=== PATIENT | female | born 1940 | race Caucasian/White ===

== ENCOUNTER 2018-10-11 21:50 | Inpatient (IN) | payer MEDICARE, MEDICAID ==
[~2018-10-11] VITALS: Ht 172.7 cm; Wt 70.6 kg
[2018-10-11] MEDS ORDERED: aspirin 81mg tab.chew PO ONE (22:10)
[2018-10-11] MEDS ORDERED: LORazepam 1 MG tablet PO ONE (22:10)
[2018-10-11] MEDS ORDERED: nitroGLYCERIN 1gm ointment UD TP ONE (22:10)
[2018-10-11 22:23] LABS: BASOPHILS # (AUTO) 0.1 X10'3 (0-0.2); BASOPHILS % (AUTO) 0.6 % (0-1); EOSINOPHILS # (AUTO) 0.4 X10'3 (0-0.9); EOSINOPHILS % (AUTO) 4.5 % (0-6); HEMATOCRIT 41.1 % (35.0-45.0); HEMOGLOBIN 13.4 g/dl (12.0-16.0); LYMPHOCYTES # (AUTO) 2.8 X10'3 (1.1-4.8); LYMPHOCYTES % (AUTO) 30.7 % (21-51); MEAN CORPUSCULAR HEMOGLOBIN 25.5 PG (27.0-31.0); MEAN CORPUSCULAR HGB CONC 32.7 % (33.0-36.5); MEAN CORPUSCULAR VOLUME 78.1 FL (78-98); MEAN PLATELET VOLUME 9.7 FL (7.4-10.4); MONOCYTES # (AUTO) 0.5 X10'3 (0-0.9); MONOCYTES % (AUTO) 5.5 % (2-12); NEUTROPHILS # (AUTO) 5.3 X10'3 (1.8-7.7); NEUTROPHILS % (AUTO) 58.7 % (42-75); PLATELET COUNT 223 X10'3 (140-440); RED BLOOD COUNT 5.26 X10'6 (4.20-5.60)
[2018-10-11 22:43] LABS: ALANINE AMINOTRANSFERASE 15 U/L (12-78); ALBUMIN 3.2 G/DL (3.4-5.0); ALKALINE PHOSPHATASE 89 IU/L (46-116); ANION GAP 7 (8-16); ASPARTATE AMINO TRANSFERASE 11 U/L (10-37); BILIRUBIN,TOTAL 0.2 MG/DL (0.1-1.0); BLOOD UREA NITROGEN 23 MG/DL (7-18); BUN/CREATININE RATIO 21.5 (6.6-38.0); CALCIUM 8.9 MG/DL (8.5-10.1); CHLORIDE 105 MMOL/L (99-107); CREATININE 1.07 MG/DL (0.40-0.90); GLUCOSE 134 MG/DL (70-104); POTASSIUM 4.2 MMOL/L (3.5-5.1); SODIUM 140 MMOL/L (135-145); TOTAL CARBON DIOXIDE 27.9 MMOL/L (24-32); TOTAL PROTEIN 6.5 G/DL (6.4-8.2); eGFR 50 ML/MIN
[2018-10-11 22:59] LABS: D-DIMER 1.04 MG/L FEU (0-0.50); INR 0.9 INR; PARTIAL THROMBOPLASTIN TIME 26 SECONDS (22-32); PROTHROMBIN TIME 9.2 SECONDS (9.0-12.0)
[2018-10-11] MEDS ORDERED: normal saline 1000ml 1,000 ML IV ONE (23:10)
[2018-10-11] MEDS ORDERED: iohexol 350MG/ML 100ml bottle IV ONE (23:12)
[2018-10-12] MEDS ORDERED: NO HOME MEDS (00:24)
[2018-10-12] MEDS ORDERED: heparin 25,000 UNIT/250ml bag 250 ML IV SCH (00:53)
[2018-10-12] MEDS ORDERED: dextrose 5%-1/2 normal saline 1,000 ML IV SCH (00:53)
[2018-10-12] MEDS ORDERED: morphine 2 MG/ML inj. syringe IV PRN (00:55)
[2018-10-12] MEDS ORDERED: ondansetron/PF 4mg/2ml inj IV PRN (00:55)
[2018-10-12] MEDS ORDERED: diphenhydrAMINE 50 mg/ml inj IV PRN (00:55)
[2018-10-12] MEDS ORDERED: HYDROmorphone 1 mg/ml syringe IV PRN (00:55)
[2018-10-12] MEDS ORDERED: metoclopramide 5 mg/ml inj IV PRN (00:55)
[2018-10-12] MEDS ORDERED: bisacodyl 10mg suppository rectal RC PRN (00:55)
[2018-10-12] MEDS ORDERED: nitroGLYCERIN 0.4mg SUBLingual tab SL PRN (00:55)
[2018-10-12] MEDS ORDERED: heparin 10,000 units/1 ML INJ IV ONE (00:55)
[2018-10-12] MEDS ORDERED: heparin 10,000 units/1 ML INJ IV PRN (00:55)
[2018-10-12] MEDS ORDERED: mag hydrox/Alum hydrox/simeth 30ml oral suspension PO PRN (00:55)
[2018-10-12] MEDS ORDERED: acetaminophen 325mg tablet PO PRN ×2 (00:55)
[2018-10-12] MEDS ORDERED: magnesium hydroxide 30ml (MOM) UD suspension PO PRN (00:55)
[2018-10-12] MEDS ORDERED: diphenhydrAMINE 25mg capsule PO PRN (00:55)
[2018-10-12] MEDS ORDERED: HYDROcodone/acetaminophen 10/325mg tab PO PRN (00:55)
[2018-10-12] MEDS ORDERED: acetaminophen 650mg rectal suppository RC PRN (00:55)
[2018-10-12 01:28] LABS: HEMOGLOBIN A1C 6.1 % (4.5-6.2)
[2018-10-12 01:39] LABS: MAGNESIUM 1.9 MG/DL (1.5-2.4); PHOSPHORUS 3.5 MG/DL (2.3-4.5)
[2018-10-12 02:00] VITALS: BP 159/99
[2018-10-12 05:11] LABS: BASOPHILS % (AUTO) 0.5 % (0-1); EOSINOPHILS # (AUTO) 0.4 X10'3 (0-0.9); EOSINOPHILS % (AUTO) 5.4 % (0-6); HEMATOCRIT 35.6 % (35.0-45.0); HEMOGLOBIN 11.4 g/dl (12.0-16.0); LYMPHOCYTES # (AUTO) 2.9 X10'3 (1.1-4.8); LYMPHOCYTES % (AUTO) 39.4 % (21-51); MEAN CORPUSCULAR HEMOGLOBIN 25.4 PG (27.0-31.0); MEAN CORPUSCULAR HGB CONC 32.1 % (33.0-36.5); MEAN CORPUSCULAR VOLUME 78.9 FL (78-98); MEAN PLATELET VOLUME 10.1 FL (7.4-10.4); MONOCYTES # (AUTO) 0.4 X10'3 (0-0.9); MONOCYTES % (AUTO) 5.2 % (2-12); NEUTROPHILS # (AUTO) 3.7 X10'3 (1.8-7.7); NEUTROPHILS % (AUTO) 49.5 % (42-75); PLATELET COUNT 183 X10'3 (140-440); RED BLOOD COUNT 4.51 X10'6 (4.20-5.60); RED CELL DISTRIBUTION WIDTH 15.4 % (11.5-14.5); WHITE BLOOD COUNT 7.5 X10'3 (4.5-11.0)
[2018-10-12 07:02] VITALS: BP 156/82
[2018-10-12] MEDS ORDERED: lisinopril 5mg tablet PO SCH (08:00)
[2018-10-12] MEDS: metoprolol tartrate 12.5mg (1/2 tablet) PO SCH ×2 (08:23→20:54)
[2018-10-12] MEDS: aspirin 81mg tab.chew PO SCH (08:24)
[2018-10-12] MEDS: docusate sod 100mg capsule PO SCH ×2 (08:24→20:00)
[2018-10-12] MEDS: nicotine 21mg patch - 24 hr TD SCH (08:25)
[2018-10-12] MEDS: nitroGLYCERIN 0.2mg/hour patch TD SCH (08:26)
[2018-10-12] MEDS ORDERED: 0.9 % SODIUM CHLORIDE 10 ML VIAL ONE ×3 (09:00)
[2018-10-12] MEDS ORDERED: rocuronium 10mg/ml inj IV ONE (09:00)
[2018-10-12] MEDS ORDERED: etomidate 2mg/ml inj. ONE (09:00)
[2018-10-12] MEDS ORDERED: sodium bicarbonate (8.4%) 1 mEq/ml syringe ONE ×3 (09:00)
[2018-10-12] MEDS ORDERED: calcium chloride 100 MG/1 ML inj IV ONE ×2 (09:00)
[2018-10-12] MEDS ORDERED: dextrose 50%-water 50ml dispensing syringe IV ONE (09:00)
[2018-10-12] MEDS ORDERED: epiNEPHrine 0.1mg/ml 10ml syringe ONE (09:00)
[2018-10-12] MEDS ORDERED: pneumococcal 23-VAL P-sac vacc 25 mcg/0.5ml vial IMVAC ONE (10:00)
[2018-10-12 11:00] VITALS: BP 127/78
[2018-10-12] MEDS: furosemide 20 MG/2 ML vial IV SCH ×2 (11:06→21:18)
[2018-10-12 15:00] VITALS: BP 143/93
[2018-10-12 19:00] VITALS: BP 130/67
[2018-10-12] MEDS: famotidine 20mg tablet PO SCH (20:53)
[2018-10-12] MEDS ORDERED: temazepam 15mg capsule PO PRN (21:00)
[2018-10-12 23:00] VITALS: BP 128/71
[2018-10-13 03:00] VITALS: BP 126/75
[2018-10-13 05:24] LABS: BASOPHILS % (AUTO) 0.6 % (0-1); EOSINOPHILS # (AUTO) 0.4 X10'3 (0-0.9); EOSINOPHILS % (AUTO) 4.4 % (0-6); HEMATOCRIT 39.5 % (35.0-45.0); HEMOGLOBIN 13.1 g/dl (12.0-16.0); LYMPHOCYTES # (AUTO) 2.1 X10'3 (1.1-4.8); LYMPHOCYTES % (AUTO) 26 % (21-51); MEAN CORPUSCULAR HEMOGLOBIN 26.2 PG (27.0-31.0); MEAN CORPUSCULAR HGB CONC 33.2 % (33.0-36.5); MEAN CORPUSCULAR VOLUME 78.8 FL (78-98); MONOCYTES # (AUTO) 0.5 X10'3 (0-0.9); MONOCYTES % (AUTO) 6.6 % (2-12); NEUTROPHILS # (AUTO) 5.1 X10'3 (1.8-7.7); NEUTROPHILS % (AUTO) 62.4 % (42-75); PLATELET COUNT 207 X10'3 (140-440); RED BLOOD COUNT 5.01 X10'6 (4.20-5.60); RED CELL DISTRIBUTION WIDTH 14.4 % (11.5-14.5); WHITE BLOOD COUNT 8.1 X10'3 (4.5-11.0)
[2018-10-13 05:40] LABS: ALANINE AMINOTRANSFERASE 13 U/L (12-78); ALBUMIN 3.2 G/DL (3.4-5.0); ALKALINE PHOSPHATASE 88 IU/L (46-116); ANION GAP 11 (8-16); ASPARTATE AMINO TRANSFERASE 14 U/L (10-37); BILIRUBIN,TOTAL 0.5 MG/DL (0.1-1.0); BLOOD UREA NITROGEN 19 MG/DL (7-18); BUN/CREATININE RATIO 17.8 (6.6-38.0); CALCIUM 8.9 MG/DL (8.5-10.1); CHLORIDE 105 MMOL/L (99-107); CHOL/HDL RATIO 4.1 (0.00-4.99); CHOLESTEROL 205 MG/DL (0-200); CREATININE 1.07 MG/DL (0.40-0.90); GLUCOSE 92 MG/DL (70-104); HDL CHOLESTEROL 50 MG/DL (35-60); LDL CHOLESTEROL 133 MG/DL (50-100); POTASSIUM 3.8 MMOL/L (3.5-5.1); SODIUM 142 MMOL/L (135-145); TOTAL CARBON DIOXIDE 26.2 MMOL/L (24-32); TOTAL PROTEIN 6.5 G/DL (6.4-8.2); TRIGLYCERIDES 131 MG/DL (20-135); eGFR 50 ML/MIN
[2018-10-13 07:13] VITALS: BP 117/69
[2018-10-13] MEDS: docusate sod 100mg capsule PO SCH ×2 (08:00→20:00)
[2018-10-13] MEDS ORDERED: atorvastatin 10mg tablet PO SCH (08:00)
[2018-10-13] MEDS: aspirin 81mg tab.chew PO SCH (08:16)
[2018-10-13] MEDS: nitroGLYCERIN 0.2mg/hour patch TD SCH (08:16)
[2018-10-13] MEDS: furosemide 20 MG/2 ML vial IV SCH ×2 (08:16→21:04)
[2018-10-13 09:00] LABS: TROPONIN I 0.18 NG/ML (0.0-0.05)
[2018-10-13] MEDS: carvedilol 6.25mg tablet PO SCH ×2 (10:09→21:04)
[2018-10-13] MEDS: atorvastatin 20mg tablet PO SCH (10:09)
[2018-10-13] MEDS: nicotine 21mg patch - 24 hr TD SCH (10:10)
[2018-10-13 11:00] VITALS: BP 106/57
[2018-10-13 15:00] VITALS: BP 107/58
[2018-10-13] MEDS ORDERED: heparin 10,000 units/1 ML INJ IV ONE ×2 (17:15→17:20)
[2018-10-13] MEDS ORDERED: heparin 10,000 units/1 ML INJ IV PRN (17:20)
[2018-10-13] MEDS ORDERED: nitroGLYCERIN 0.4mg SUBLingual tab SL PRN (17:20)
[2018-10-13] MEDS: heparin 25,000 UNIT/250ml bag 250 ML IV SCH (17:43)
[2018-10-13 18:57] LABS: BASOPHILS # (AUTO) 0.1 X10'3 (0-0.2); BASOPHILS % (AUTO) 0.6 % (0-1); EOSINOPHILS # (AUTO) 0.1 X10'3 (0-0.9); EOSINOPHILS % (AUTO) 1.3 % (0-6); HEMATOCRIT 39.6 % (35.0-45.0); HEMOGLOBIN 12.9 g/dl (12.0-16.0); LYMPHOCYTES % (AUTO) 11.5 % (21-51); MEAN CORPUSCULAR HEMOGLOBIN 25.8 PG (27.0-31.0); MEAN CORPUSCULAR HGB CONC 32.7 % (33.0-36.5); MEAN CORPUSCULAR VOLUME 78.9 FL (78-98); MEAN PLATELET VOLUME 10.1 FL (7.4-10.4); MONOCYTES # (AUTO) 0.4 X10'3 (0-0.9); MONOCYTES % (AUTO) 4.5 % (2-12); NEUTROPHILS # (AUTO) 7.1 X10'3 (1.8-7.7); NEUTROPHILS % (AUTO) 82.1 % (42-75); PLATELET COUNT 195 X10'3 (140-440); RED BLOOD COUNT 5.02 X10'6 (4.20-5.60); RED CELL DISTRIBUTION WIDTH 15.2 % (11.5-14.5); WHITE BLOOD COUNT 8.7 X10'3 (4.5-11.0)
[2018-10-13 19:00] VITALS: BP 112/55
[2018-10-13 19:17] LABS: PROTHROMBIN TIME 10.2 SECONDS (9.0-12.0)
[2018-10-13] MEDS ORDERED: heparin, porcine 5000 units/ml vial SQ SCH (20:00)
[2018-10-13] MEDS: famotidine 20mg tablet PO SCH (21:04)
[2018-10-13] MEDS: lisinopril 5mg tablet PO SCH (21:04)
[2018-10-13 23:00] VITALS: BP 129/76
[2018-10-14] VITALS (12 sets, daily range): BP systolic 108–141; BP diastolic 51–78
[2018-10-14 03:45] LABS: HEMATOCRIT 38.9 % (35.0-45.0); HEMOGLOBIN 12.7 g/dl (12.0-16.0); MEAN CORPUSCULAR HEMOGLOBIN 25.7 PG (27.0-31.0); MEAN CORPUSCULAR HGB CONC 32.7 % (33.0-36.5); MEAN CORPUSCULAR VOLUME 78.7 FL (78-98); MEAN PLATELET VOLUME 10.2 FL (7.4-10.4); PLATELET COUNT 204 X10'3 (140-440); RED BLOOD COUNT 4.94 X10'6 (4.20-5.60); WHITE BLOOD COUNT 8.1 X10'3 (4.5-11.0)
[2018-10-14 03:49] LABS: ALANINE AMINOTRANSFERASE 14 U/L (12-78); ALBUMIN 3.1 G/DL (3.4-5.0); ALBUMIN/GLOBULIN RATIO 0.9 (1.1-1.5); ALKALINE PHOSPHATASE 80 IU/L (46-116); ANION GAP 11 (8-16); ASPARTATE AMINO TRANSFERASE 15 U/L (10-37); BILIRUBIN,TOTAL 0.6 MG/DL (0.1-1.0); BLOOD UREA NITROGEN 25 MG/DL (7-18); BUN/CREATININE RATIO 23.1 (6.6-38.0); CALCIUM 8.9 MG/DL (8.5-10.1); CHLORIDE 101 MMOL/L (99-107); CREATININE 1.08 MG/DL (0.40-0.90); GLUCOSE 102 MG/DL (70-104); POTASSIUM 3.6 MMOL/L (3.5-5.1); SODIUM 137 MMOL/L (135-145); TOTAL CARBON DIOXIDE 25.5 MMOL/L (24-32); TOTAL PROTEIN 6.5 G/DL (6.4-8.2); eGFR 49 ML/MIN
[2018-10-14 04:49] LABS: PLATELET ESTIMATE NORMAL; TOTAL CELLS COUNTED 100
[2018-10-14] MEDS ORDERED: nitroGLYCERIN-Tridil 50MG/D5W 250 ML IV ONE (06:10)
[2018-10-14] MEDS ORDERED: midazolam 2 mg/2 ml injection ONE (06:10)
[2018-10-14] MEDS ORDERED: fentaNYL/PF 50MCG/1 ML 2ML syringe ONE (06:10)
[2018-10-14] MEDS ORDERED: iohexol 350MG/ML 100ml bottle IV ONE (06:11)
[2018-10-14] MEDS ORDERED: iohexol 350 MG/ML 50ML vial IV ONE (06:11)
[2018-10-14] MEDS ORDERED: LIDOcaine 1% (10mg/ml)w/preservative injection 20ml MDV ONE (06:11)
[2018-10-14] MEDS ORDERED: heparin 1,000unit/ml 10ml vial 10 ML ONE (06:11)
[2018-10-14] MEDS: pantoprazole 40mg Tablet.DR PO SCH (07:30)
[2018-10-14 07:45] LABS: ISTAT HGB ART 12.9 g/dl (12.0-16.0); ISTAT Hct ART 38 %PCV (35-48); ISTAT O2 SATURATION ARTERIAL 93 % (95-98); ISTAT SOURCE ART
[2018-10-14 07:45] LABS: ISTAT Hct MIX 38 %PCV (35-48); ISTAT O2 SATURATION MIX VENOUS 57 % (60-80); ISTAT SOURCE MIX
[2018-10-14] MEDS: atorvastatin 20mg tablet PO SCH (08:00)
[2018-10-14] MEDS: aspirin 81mg tab.chew PO SCH (08:00)
[2018-10-14] MEDS: docusate sod 100mg capsule PO SCH ×2 (08:00→20:00)
[2018-10-14] MEDS: furosemide 20 MG/2 ML vial IV SCH ×2 (10:00→20:29)
[2018-10-14] MEDS: nicotine 21mg patch - 24 hr TD SCH (10:00)
[2018-10-14] MEDS: nitroGLYCERIN 0.2mg/hour patch TD SCH (10:00)
[2018-10-14] MEDS: carvedilol 6.25mg tablet PO SCH ×2 (10:01→20:29)
[2018-10-14] MEDS ORDERED: cefazolin/dext.iso 2gm/50ml 50 ML IV ONE (10:25)
[2018-10-14] MEDS ORDERED: dextrose 50%-water 50ml dispensing syringe IV PRN (10:25)
[2018-10-14] MEDS: insulin regular, human inj. 100 UNITS in normal saline 100ml IV soln 100 ML IV SCH ×2 (10:25)
[2018-10-14] MEDS ORDERED: MESSAGE TO NURSING PO ONE ×4 (10:25)
[2018-10-14] MEDS ORDERED: vancomycin/NS 1 GM ADD-VANTAGE 250 ML IV ONE (10:25)
[2018-10-14 10:47] LABS: ALBUMIN 2.9 G/DL (3.4-5.0); ANION GAP 10 (8-16); BLOOD UREA NITROGEN 23 MG/DL (7-18); BUN/CREATININE RATIO 22.3 (6.6-38.0); CALCIUM 8.6 MG/DL (8.5-10.1); CHLORIDE 102 MMOL/L (99-107); CREATININE 1.03 MG/DL (0.40-0.90); GLUCOSE 104 MG/DL (70-104); POTASSIUM 3.7 MMOL/L (3.5-5.1); SODIUM 136 MMOL/L (135-145); TOTAL CARBON DIOXIDE 24.3 MMOL/L (24-32); eGFR 52 ML/MIN
[2018-10-14 11:02] LABS: HEMATOCRIT 38.4 % (35.0-45.0); HEMOGLOBIN 12.6 g/dl (12.0-16.0); MEAN CORPUSCULAR HEMOGLOBIN 25.5 PG (27.0-31.0); MEAN CORPUSCULAR HGB CONC 32.6 % (33.0-36.5); MEAN CORPUSCULAR VOLUME 78.2 FL (78-98); MEAN PLATELET VOLUME 10.3 FL (7.4-10.4); PLATELET COUNT 183 X10'3 (140-440); RED BLOOD COUNT 4.92 X10'6 (4.20-5.60); RED CELL DISTRIBUTION WIDTH 14.9 % (11.5-14.5)
[2018-10-14] MEDS: insulin Lispro (HumaLOG) vial - multi-dose SQ SCH ×2 (13:00→18:00)
[2018-10-14] MEDS ORDERED: furosemide 10 MG/1 ML 10ml inj IV ONE (13:40)
[2018-10-14] MEDS ORDERED: potassium Cl 20 mEq SR tablet PO STA (13:40)
[2018-10-14] MEDS ORDERED: furosemide 40mg/4ml inj IV ONE (14:05)
[2018-10-14 15:46] LABS: ABG BASE EXCESS 1.4 mmol/L (-2.0-3.0); ABG HCO3 24.9 mmol/L (22.0-26.0); ABG OXYGEN SATURATION 94.3 % (95-98); ABG PCO2 (T) 35.7 mmHg (32.0-45.0); ABG PH (T) 7.461 (7.350-7.450); ABG PO2 (T) 67.1 mmHg (83-108); ALLEN'S TEST Positive; FCOHb 0.3 % (0.5-1.5); TOTAL HEMOGLOBIN 13.2 G/dl (12.0-16.0)
[2018-10-14 16:07] LABS: CLARITY,URINE CLEAR (Clear); COLOR,URINE STRAW (Yellow); GLUCOSE, URINE NEGATIVE (Neg); KETONES,URINE NEGATIVE (Neg); LEUKOCYTE ESTERASE ,URINE NEGATIVE (Neg); NITRITES, URINE NEGATIVE (Neg); OCCULT BLOOD,URINE SMALL (Neg); PH,URINE 6.5 (4.8-8.0); PROTEIN,URINE NEGATIVE (Neg); UROBILINOGEN,URINE 0.2 E.U/dL (0.2-1.0)
[2018-10-14 16:13] LABS: UA COLLECTION TYPE CLN CATCH MIDSTREAM
[2018-10-14 16:15] LABS: BACTERIA,URINE FEW /HPF (Neg); RBC,URINE 0-2 /HPF (0-2); SQUAMOUS EPITHELIAL CELL,UR FEW /LPF (FEW); WBC,URINE 0-4 /HPF (0-4)
[2018-10-14] MEDS: heparin 25,000 UNIT/250ml bag 250 ML IV SCH (18:15)
[2018-10-14] MEDS ORDERED: metoprolol tartrate 12.5mg (1/2 tablet) PO SCH (20:00)
[2018-10-14] MEDS: mupirocin 2% nasal ointment 1gm UD NS SCH ×2 (20:00→20:39)
[2018-10-14] MEDS: famotidine 20mg tablet PO SCH (20:29)
[2018-10-14] MEDS: lisinopril 5mg tablet PO SCH (20:29)
[2018-10-14] MEDS ORDERED: ringers solution, lacted 1,000 ML IV ONE (20:42)
[2018-10-15] VITALS (15 sets, daily range): BP systolic 100–146; BP diastolic 56–78
[2018-10-15 05:26] LABS: INR 0.9 INR; PROTHROMBIN TIME 9.6 SECONDS (9.0-12.0)
[2018-10-15 05:28] LABS: BASOPHILS % (AUTO) 0.2 % (0-1); EOSINOPHILS # (AUTO) 0.2 X10'3 (0-0.9); EOSINOPHILS % (AUTO) 1.8 % (0-6); HEMATOCRIT 38.1 % (35.0-45.0); HEMOGLOBIN 12.5 g/dl (12.0-16.0); LYMPHOCYTES # (AUTO) 1.7 X10'3 (1.1-4.8); LYMPHOCYTES % (AUTO) 18.8 % (21-51); MEAN CORPUSCULAR HEMOGLOBIN 25.5 PG (27.0-31.0); MEAN CORPUSCULAR HGB CONC 32.8 % (33.0-36.5); MEAN CORPUSCULAR VOLUME 77.8 FL (78-98); MEAN PLATELET VOLUME 10.4 FL (7.4-10.4); MONOCYTES # (AUTO) 0.6 X10'3 (0-0.9); MONOCYTES % (AUTO) 6.1 % (2-12); NEUTROPHILS # (AUTO) 6.6 X10'3 (1.8-7.7); NEUTROPHILS % (AUTO) 73.1 % (42-75); PLATELET COUNT 204 X10'3 (140-440); RED BLOOD COUNT 4.89 X10'6 (4.20-5.60); RED CELL DISTRIBUTION WIDTH 14.9 % (11.5-14.5); WHITE BLOOD COUNT 9.1 X10'3 (4.5-11.0)
[2018-10-15 05:30] LABS: ALANINE AMINOTRANSFERASE 14 U/L (12-78); ALBUMIN 3.2 G/DL (3.4-5.0); ALBUMIN/GLOBULIN RATIO 0.9 (1.1-1.5); ALKALINE PHOSPHATASE 88 IU/L (46-116); ANION GAP 12 (8-16); ASPARTATE AMINO TRANSFERASE 13 U/L (10-37); BILIRUBIN,TOTAL 0.4 MG/DL (0.1-1.0); BLOOD UREA NITROGEN 26 MG/DL (7-18); BUN/CREATININE RATIO 23.4 (6.6-38.0); CALCIUM 9.1 MG/DL (8.5-10.1); CHLORIDE 101 MMOL/L (99-107); CREATININE 1.11 MG/DL (0.40-0.90); GLUCOSE 108 MG/DL (70-104); POTASSIUM 3.9 MMOL/L (3.5-5.1); SODIUM 137 MMOL/L (135-145); TOTAL CARBON DIOXIDE 23.7 MMOL/L (24-32); TOTAL PROTEIN 6.7 G/DL (6.4-8.2); eGFR 48 ML/MIN
[2018-10-15] MEDS ORDERED: famotidine 20mg tablet PO ONE (06:00)
[2018-10-15] MEDS ORDERED: LORazepam 2 mg/ml vial IV ONE (06:00)
[2018-10-15] MEDS ORDERED: LIDOcaine 2% (20 mg/ml) 5ml cardiac syringe ONE (06:55)
[2018-10-15] MEDS ORDERED: aminocaproic acid 250 MG/1 ML inj. ONE (06:55)
[2018-10-15] MEDS ORDERED: DOPamine/D5W 400mg/250ml bag IV ONE (06:55)
[2018-10-15] MEDS ORDERED: heparin 10,000 units/1 ML INJ ONE (06:55)
[2018-10-15] MEDS ORDERED: protamine sulf. 10mg/ml inj. IV ONE (06:55)
[2018-10-15] MEDS ORDERED: magnesium sulf 1 GM/2 ML ONE (06:55)
[2018-10-15] MEDS ORDERED: sodium bicarbonate (8.4%) 1 mEq/ml syringe ONE (06:55)
[2018-10-15] MEDS ORDERED: DOBUTamine/D5W 500mg/250ml premix IV ONE (06:55)
[2018-10-15] MEDS ORDERED: albumin (human) 25% 100 ML IV solution IV ONE (06:55)
[2018-10-15] MEDS ORDERED: methylPREDNISolone sod succ 1000mg vial ONE (06:55)
[2018-10-15] MEDS ORDERED: sevoflurane 250ml liquid IH ONE (06:55)
[2018-10-15] MEDS ORDERED: heparin 1,000 units/ml 10ml inj ONE (06:55)
[2018-10-15] MEDS ORDERED: ePHEDrine 50MG/ML INJ. ONE ×2 (06:55→08:18)
[2018-10-15] MEDS ORDERED: potassium Cl 2 mEq/ml inj IV ONE (06:55)
[2018-10-15] MEDS ORDERED: MIDAZolam 1mg/ml 10ml vial ONE (07:11)
[2018-10-15] MEDS ORDERED: SUfentanil 50mcg/ml 1ml amp IV ONE ×2 (07:11)
[2018-10-15] MEDS: pantoprazole 40mg Tablet.DR PO SCH (07:30)
[2018-10-15] MEDS: docusate sod 100mg capsule PO SCH ×2 (08:00→20:00)
[2018-10-15] MEDS: mupirocin 2% nasal ointment 1gm UD NS SCH ×2 (08:00→20:14)
[2018-10-15] MEDS: carvedilol 6.25mg tablet PO SCH (08:00)
[2018-10-15] MEDS: aspirin 81mg tab.chew PO SCH (08:00)
[2018-10-15] MEDS: nitroGLYCERIN 0.2mg/hour patch TD SCH (08:00)
[2018-10-15] MEDS: furosemide 20 MG/2 ML vial IV SCH (08:00)
[2018-10-15] MEDS: nicotine 21mg patch - 24 hr TD SCH ×3 (08:00→10:05)
[2018-10-15] MEDS: atorvastatin 20mg tablet PO SCH (08:00)
[2018-10-15 08:17] LABS: ABG BASE EXCESS 1.2 mmol/L (-2.0-3.0); ABG HCO3 25.2 mmol/L (22.0-26.0); ABG OXYGEN SATURATION 99.5 % (95-98); ABG PCO2 37.9 mmHg (35.0-45.0); ABG PH 7.441 (7.350-7.450); ABG PO2 415.9 mmHg (60.0-100.0); CL (ABG) 106 mmol/L (99-107); FMetHb 0.3 % (0.3-1.12); FO2Hb 99.2 % (94-100); GLUCOSE (ABG) 92 mg/dl (70-105); IONIZED CA (ABG) 1.15 mmol/L (1.03-1.32); K (ABG) 3.9 mmol/L (3.3-5.1); NA (ABG) 135 mmol/L (135-145); TOTAL HEMOGLOBIN 11.6 G/dl (12.0-16.0)
[2018-10-15] MEDS ORDERED: pancuronium br 1mg/ml inj IV ONE (08:18)
[2018-10-15] MEDS ORDERED: phenylephrine 10mg/ml inj. ONE (08:18)
[2018-10-15] MEDS ORDERED: albumin (Human) 5% 250ml 250 ML IV ONE ×4 (08:29→13:03)
[2018-10-15] MEDS: insulin Lispro (HumaLOG) vial - multi-dose SQ SCH ×3 (09:00→17:29)
[2018-10-15 09:25] LABS: ABG BASE EXCESS VENOUS -1.5 mmol/L; ABG PCO2 VENOUS 43.5 mmHg; ABG PO2 VENOUS 40.4 mmHg; CL (ABG) 104 mmol/L (99-107); FCOHb VENOUS 0.3 %; FHHb VENOUS 28.3 %; FMetHb VENOUS 0.3 %; FO2Hb VENOUS 71.1 %; GLUCOSE (ABG) 89 mg/dl (70-105); IONIZED CA (ABG) 1.11 mmol/L (1.03-1.32); K (ABG) 4.1 mmol/L (3.3-5.1); NA (ABG) 135 mmol/L (135-145); TOTAL HEMOGLOBIN 10.6 G/dl (12.0-16.0)
[2018-10-15 09:50] LABS: ABG BASE EXCESS 1.5 mmol/L (-2.0-3.0); ABG HCO3 24.6 mmol/L (22.0-26.0); ABG OXYGEN SATURATION 99.3 % (95-98); ABG PCO2 32.1 mmHg (35.0-45.0); ABG PH 7.503 (7.350-7.450); ABG PO2 433.6 mmHg (60.0-100.0); CL (ABG) 100 mmol/L (99-107); FCOHb 0.8 % (0.5-1.5); FMetHb 0.6 % (0.3-1.12); FO2Hb 97.9 % (94-100); GLUCOSE (ABG) 98 mg/dl (70-105); IONIZED CA (ABG) 0.89 mmol/L (1.03-1.32); K (ABG) 3.9 mmol/L (3.3-5.1); NA (ABG) 131 mmol/L (135-145)
[2018-10-15] MEDS ORDERED: MESSAGE TO NURSING PO ONE (10:00)
[2018-10-15] MEDS: insulin regular, human inj. 100 UNITS in normal saline 100ml IV soln 100 ML IV SCH ×2 (10:06)
[2018-10-15 10:11] LABS: ABG BASE EXCESS -0.1 mmol/L (-2.0-3.0); ABG HCO3 25.2 mmol/L (22.0-26.0); ABG OXYGEN SATURATION 99.4 % (95-98); ABG PCO2 43.7 mmHg (35.0-45.0); ABG PH 7.378 (7.350-7.450); ABG PO2 592.3 mmHg (60.0-100.0); CL (ABG) 103 mmol/L (99-107); FCOHb 0.5 % (0.5-1.5); FMetHb 0.5 % (0.3-1.12); FO2Hb 98.4 % (94-100); GLUCOSE (ABG) 141 mg/dl (70-105); IONIZED CA (ABG) 0.93 mmol/L (1.03-1.32); NA (ABG) 131 mmol/L (135-145); TOTAL HEMOGLOBIN 8.1 G/dl (12.0-16.0)
[2018-10-15 10:31] LABS: ABG BASE EXCESS VENOUS -1.4 mmol/L; ABG PCO2 VENOUS 42.9 mmHg; ABG PO2 VENOUS 57.8 mmHg; CL (ABG) 102 mmol/L (99-107); FCOHb VENOUS 0.3 %; FHHb VENOUS 10.2 %; FMetHb VENOUS 0.4 %; FO2Hb VENOUS 89.1 %; GLUCOSE (ABG) 144 mg/dl (70-105); IONIZED CA (ABG) 0.99 mmol/L (1.03-1.32); NA (ABG) 131 mmol/L (135-145); TOTAL HEMOGLOBIN 9.3 G/dl (12.0-16.0)
[2018-10-15 10:45] LABS: ABG BASE EXCESS -4.5 mmol/L (-2.0-3.0); ABG HCO3 22.6 mmol/L (22.0-26.0); ABG OXYGEN SATURATION 99.3 % (95-98); ABG PCO2 50.5 mmHg (35.0-45.0); ABG PH 7.268 (7.350-7.450); ABG PO2 377.3 mmHg (60.0-100.0); CL (ABG) 105 mmol/L (99-107); FCOHb 0.3 % (0.5-1.5); FMetHb 0.4 % (0.3-1.12); FO2Hb 98.6 % (94-100); GLUCOSE (ABG) 144 mg/dl (70-105); IONIZED CA (ABG) 0.98 mmol/L (1.03-1.32); K (ABG) 5.6 mmol/L (3.3-5.1); NA (ABG) 134 mmol/L (135-145); TOTAL HEMOGLOBIN 10.5 G/dl (12.0-16.0)
[2018-10-15 10:56] LABS: ABG BASE EXCESS 1.5 mmol/L (-2.0-3.0); ABG HCO3 25.5 mmol/L (22.0-26.0); ABG OXYGEN SATURATION 99.3 % (95-98); ABG PH 7.445 (7.350-7.450); ABG PO2 402.3 mmHg (60.0-100.0); CL (ABG) 105 mmol/L (99-107); FCOHb 0.3 % (0.5-1.5); FMetHb 0.3 % (0.3-1.12); FO2Hb 98.7 % (94-100); GLUCOSE (ABG) 145 mg/dl (70-105); IONIZED CA (ABG) 0.93 mmol/L (1.03-1.32); K (ABG) 5.9 mmol/L (3.3-5.1); NA (ABG) 135 mmol/L (135-145); TOTAL HEMOGLOBIN 9.8 G/dl (12.0-16.0)
[2018-10-15 11:21] LABS: ABG BASE EXCESS -0.3 mmol/L (-2.0-3.0); ABG HCO3 23.6 mmol/L (22.0-26.0); ABG OXYGEN SATURATION 99.3 % (95-98); ABG PCO2 35.7 mmHg (35.0-45.0); ABG PH 7.439 (7.350-7.450); ABG PO2 394.5 mmHg (60.0-100.0); CL (ABG) 109 mmol/L (99-107); FCOHb 0.4 % (0.5-1.5); FMetHb 0.3 % (0.3-1.12); FO2Hb 98.6 % (94-100); GLUCOSE (ABG) 145 mg/dl (70-105); IONIZED CA (ABG) 0.92 mmol/L (1.03-1.32); K (ABG) 5.3 mmol/L (3.3-5.1); NA (ABG) 136 mmol/L (135-145); TOTAL HEMOGLOBIN 9.3 G/dl (12.0-16.0)
[2018-10-15 11:50] LABS: ABG HCO3 28.3 mmol/L (22.0-26.0); ABG OXYGEN SATURATION 99.2 % (95-98); ABG PCO2 41.2 mmHg (35.0-45.0); ABG PH 7.454 (7.350-7.450); ABG PO2 352.6 mmHg (60.0-100.0); CL (ABG) 105 mmol/L (99-107); FCOHb 0.7 % (0.5-1.5); FMetHb 0.4 % (0.3-1.12); FO2Hb 98.1 % (94-100); GLUCOSE (ABG) 127 mg/dl (70-105); IONIZED CA (ABG) 0.92 mmol/L (1.03-1.32); K (ABG) 5.4 mmol/L (3.3-5.1); NA (ABG) 136 mmol/L (135-145); TOTAL HEMOGLOBIN 8.1 G/dl (12.0-16.0)
[2018-10-15 12:35] LABS: ABG BASE EXCESS VENOUS -0.2 mmol/L; ABG HCO3 VENOUS 26.2 mmol/L; ABG PCO2 VENOUS 51.8 mmHg; ABG PO2 VENOUS 45.1 mmHg; CL (ABG) 108 mmol/L (99-107); FCOHb VENOUS 0.5 %; FHHb VENOUS 20.8 %; FMetHb VENOUS 0.8 %; FO2Hb VENOUS 77.9 %; GLUCOSE (ABG) 112 mg/dl (70-105); IONIZED CA (ABG) 1.16 mmol/L (1.03-1.32); K (ABG) 4.5 mmol/L (3.3-5.1); NA (ABG) 136 mmol/L (135-145); TOTAL HEMOGLOBIN 8.8 G/dl (12.0-16.0)
[2018-10-15] MEDS ORDERED: niCARDipine-NS 40mg/200ml IVPB 200 ML IV PRN (13:26)
[2018-10-15] MEDS ORDERED: DOPamine 400mg/D5W 250ml 250 ML IV PRN (13:26)
[2018-10-15] MEDS ORDERED: nitroGLYCERIN-Tridil 50MG/D5W 250 ML IV PRN (13:26)
[2018-10-15] MEDS ORDERED: pantoprazole 40 MG vial IV ONE (13:30)
[2018-10-15] MEDS ORDERED: HYDROcodone/acetaminophen 10/325mg tab PO PRN ×2 (13:30)
[2018-10-15] MEDS ORDERED: insulin regular, human inj. 100 UNITS in normal saline 100ml IV soln 100 ML IV SCH ×2 (13:30)
[2018-10-15] MEDS ORDERED: magnesium 4gm in 100ml NS 100 ML IV PRN (13:30)
[2018-10-15] MEDS ORDERED: potassium Cl 20mEq/100mL bag 100 ML IV PRN ×2 (13:30)
[2018-10-15] MEDS ORDERED: normal saline 250ml IV soln 250 ML IV PRN (13:30)
[2018-10-15] MEDS ORDERED: sodium phosphate inj. 15 MMOL in dextrose 5%-water 150 ML IV PRN (13:30)
[2018-10-15] MEDS ORDERED: sodium phosphate inj. 30 MMOL in dextrose 5%-water 250 ML IV PRN (13:30)
[2018-10-15] MEDS ORDERED: magnesium 2GM in 50ml NS 50 ML IV PRN (13:30)
[2018-10-15] MEDS ORDERED: dextrose 50%-water 50ml dispensing syringe IV PRN (13:30)
[2018-10-15] MEDS ORDERED: DOBUTamine-DoBUTrex 500mg/D5W 250 ML IV PRN (13:30)
[2018-10-15] MEDS ORDERED: acetaminophen 325mg tablet PO PRN (13:30)
[2018-10-15] MEDS ORDERED: Neutra Phos packet PO PRN (13:30)
[2018-10-15] MEDS ORDERED: magnesium hydroxide 30ml (MOM) UD suspension PO PRN (13:30)
[2018-10-15] MEDS ORDERED: morphine 4 MG/ML inj SYRINge IV PRN (13:30)
[2018-10-15] MEDS ORDERED: metoclopramide 5 mg/ml inj IV PRN (13:30)
[2018-10-15 13:57] LABS: BASOPHILS % (AUTO) 0.1 % (0-1); EOSINOPHILS # (AUTO) 0.2 X10'3 (0-0.9); EOSINOPHILS % (AUTO) 1.5 % (0-6); HEMOGLOBIN 10.1 g/dl (12.0-16.0); LYMPHOCYTES # (AUTO) 0.4 X10'3 (1.1-4.8); LYMPHOCYTES % (AUTO) 3.4 % (21-51); MEAN CORPUSCULAR HGB CONC 33.6 % (33.0-36.5); MEAN CORPUSCULAR VOLUME 80.5 FL (78-98); MEAN PLATELET VOLUME 9.7 FL (7.4-10.4); MONOCYTES # (AUTO) 0.5 X10'3 (0-0.9); MONOCYTES % (AUTO) 4.5 % (2-12); NEUTROPHILS # (AUTO) 10.5 X10'3 (1.8-7.7); NEUTROPHILS % (AUTO) 90.5 % (42-75); PLATELET COUNT 76 X10'3 (140-440); RED BLOOD COUNT 3.73 X10'6 (4.20-5.60); RED CELL DISTRIBUTION WIDTH 15.4 % (11.5-14.5); WHITE BLOOD COUNT 11.6 X10'3 (4.5-11.0)
[2018-10-15 14:01] LABS: ABG BASE EXCESS -2.4 mmol/L (-2.0-3.0); ABG HCO3 20.9 mmol/L (22.0-26.0); ABG OXYGEN SATURATION 90.9 % (95-98); ABG PCO2 (T) 30.1 mmHg (32.0-45.0); ABG PH (T) 7.456 (7.350-7.450); ABG PO2 (T) 56.4 mmHg (83-108); FCOHb 0.3 % (0.5-1.5); FMetHb 0.2 % (0.3-1.12); FO2Hb 90.4 % (94-100); MINUTE VOLUME 8 L/min; PATIENT TEMPERATURE 36.3; PEEP 5 cm H2O; RESPIRATORY RATE 12 b/min; TIDAL VOLUME 650 mL
[2018-10-15 14:23] LABS: INR 1.2 INR; PARTIAL THROMBOPLASTIN TIME 51 SECONDS (22-32); PROTHROMBIN TIME 11.8 SECONDS (9.0-12.0)
[2018-10-15 14:28] LABS: ALANINE AMINOTRANSFERASE 15 U/L (12-78); ALBUMIN 3.6 G/DL (3.4-5.0); ALBUMIN/GLOBULIN RATIO 2.4 (1.1-1.5); ALKALINE PHOSPHATASE 44 IU/L (46-116); ANION GAP 15 (8-16); ASPARTATE AMINO TRANSFERASE 41 U/L (10-37); BILIRUBIN,TOTAL 0.9 MG/DL (0.1-1.0); BLOOD UREA NITROGEN 22 MG/DL (7-18); CALCIUM 8.2 MG/DL (8.5-10.1); CHLORIDE 107 MMOL/L (99-107); CREATININE 1.16 MG/DL (0.40-0.90); GLUCOSE 123 MG/DL (70-104); PHOSPHORUS 2.1 MG/DL (2.3-4.5); SODIUM 144 MMOL/L (135-145); TOTAL CARBON DIOXIDE 22.1 MMOL/L (24-32); TOTAL PROTEIN 5.1 G/DL (6.4-8.2); eGFR 45 ML/MIN
[2018-10-15 14:30] LABS: POTASSIUM 4.1 MMOL/L (3.5-5.1)
[2018-10-15] MEDS: morphine 4 MG/ML inj SYRINge IV PRN ×4 (15:19→20:48)
[2018-10-15] MEDS: potassium Cl 20mEq/100mL bag 100 ML IV PRN ×2 (15:21→22:42)
[2018-10-15] MEDS: sodium chloride 0.45% 1,000 ML IV SCH (15:23)
[2018-10-15] MEDS: ceFAZolin 1GM/D5W- ADD-VANTAGE 50 ML IV SCH (16:26)
[2018-10-15] MEDS: albumin (Human) 5% 250ml 250 ML IV PRN (17:13)
[2018-10-15] MEDS: vancomycin/NS 1 GM ADD-VANTAGE 250 ML IV SCH (20:14)
[2018-10-15 20:32] LABS: BASOPHILS % (AUTO) 0.1 % (0-1); EOSINOPHILS # (AUTO) 0.1 X10'3 (0-0.9); HEMATOCRIT 28.5 % (35.0-45.0); HEMOGLOBIN 9.4 g/dl (12.0-16.0); LYMPHOCYTES # (AUTO) 0.3 X10'3 (1.1-4.8); LYMPHOCYTES % (AUTO) 2.9 % (21-51); MEAN CORPUSCULAR HEMOGLOBIN 26.6 PG (27.0-31.0); MEAN CORPUSCULAR VOLUME 80.6 FL (78-98); MEAN PLATELET VOLUME 10.2 FL (7.4-10.4); MONOCYTES # (AUTO) 0.5 X10'3 (0-0.9); NEUTROPHILS # (AUTO) 10.7 X10'3 (1.8-7.7); PLATELET COUNT 74 X10'3 (140-440); RED BLOOD COUNT 3.54 X10'6 (4.20-5.60); RED CELL DISTRIBUTION WIDTH 15.6 % (11.5-14.5); WHITE BLOOD COUNT 11.7 X10'3 (4.5-11.0)
[2018-10-15 20:35] LABS: ALBUMIN 3.6 G/DL (3.4-5.0); ANION GAP 13 (8-16); BLOOD UREA NITROGEN 23 MG/DL (7-18); BUN/CREATININE RATIO 18.5 (6.6-38.0); CHLORIDE 110 MMOL/L (99-107); CREATININE 1.24 MG/DL (0.40-0.90); GLUCOSE 137 MG/DL (70-104); MAGNESIUM 3.1 MG/DL (1.5-2.4); PHOSPHORUS 1.8 MG/DL (2.3-4.5); POTASSIUM 4.1 MMOL/L (3.5-5.1); SODIUM 144 MMOL/L (135-145); TOTAL CARBON DIOXIDE 20.9 MMOL/L (24-32); eGFR 42 ML/MIN
[2018-10-15 23:51] LABS: ABG BASE EXCESS -4.4 mmol/L (-2.0-3.0); ABG HCO3 19.6 mmol/L (22.0-26.0); ABG OXYGEN SATURATION 87.7 % (95-98); ABG PCO2 (T) 31.7 mmHg (32.0-45.0); ABG PH (T) 7.408 (7.350-7.450); ABG PO2 (T) 53.6 mmHg (83-108); FCOHb 0.3 % (0.5-1.5); FMetHb 0.1 % (0.3-1.12); FO2Hb 87.3 % (94-100); MINUTE VOLUME 5 L/min; PATIENT TEMPERATURE 36.6; PEEP 5 cm H2O; RESPIRATORY RATE (OBSERVED) 14 b/min; TOTAL HEMOGLOBIN 9.6 G/dl (12.0-16.0)
[2018-10-16] VITALS (24 sets, daily range): BP systolic 88–158; BP diastolic 54–82
[2018-10-16] MEDS: ceFAZolin 1GM/D5W- ADD-VANTAGE 50 ML IV SCH ×3 (00:01→16:00)
[2018-10-16] MEDS: morphine 4 MG/ML inj SYRINge IV PRN ×6 (00:02→21:45)
[2018-10-16 02:57] LABS: BASOPHILS % (AUTO) 0 % (0-1); EOSINOPHILS % (AUTO) 0 % (0-6); HEMATOCRIT 26.3 % (35.0-45.0); HEMOGLOBIN 8.6 g/dl (12.0-16.0); LYMPHOCYTES # (AUTO) 0.4 X10'3 (1.1-4.8); LYMPHOCYTES % (AUTO) 3.2 % (21-51); MEAN CORPUSCULAR HEMOGLOBIN 26.4 PG (27.0-31.0); MEAN CORPUSCULAR HGB CONC 32.7 % (33.0-36.5); MEAN CORPUSCULAR VOLUME 80.7 FL (78-98); MEAN PLATELET VOLUME 10.1 FL (7.4-10.4); MONOCYTES # (AUTO) 0.5 X10'3 (0-0.9); MONOCYTES % (AUTO) 4.6 % (2-12); NEUTROPHILS # (AUTO) 10.9 X10'3 (1.8-7.7); NEUTROPHILS % (AUTO) 92.2 % (42-75); PLATELET COUNT 65 X10'3 (140-440); RED BLOOD COUNT 3.26 X10'6 (4.20-5.60); RED CELL DISTRIBUTION WIDTH 15.5 % (11.5-14.5); WHITE BLOOD COUNT 11.8 X10'3 (4.5-11.0)
[2018-10-16 03:09] LABS: ALANINE AMINOTRANSFERASE 19 U/L (12-78); ALBUMIN 3.3 G/DL (3.4-5.0); ALBUMIN/GLOBULIN RATIO 1.9 (1.1-1.5); ALKALINE PHOSPHATASE 34 IU/L (46-116); ANION GAP 13 (8-16); ASPARTATE AMINO TRANSFERASE 63 U/L (10-37); BILIRUBIN,TOTAL 0.5 MG/DL (0.1-1.0); BLOOD UREA NITROGEN 24 MG/DL (7-18); BUN/CREATININE RATIO 18.9 (6.6-38.0); CALCIUM 7.9 MG/DL (8.5-10.1); CHLORIDE 112 MMOL/L (99-107); CREATININE 1.27 MG/DL (0.40-0.90); GLUCOSE 138 MG/DL (70-104); MAGNESIUM 2.7 MG/DL (1.5-2.4); PHOSPHORUS 4.5 MG/DL (2.3-4.5); POTASSIUM 4.3 MMOL/L (3.5-5.1); SODIUM 144 MMOL/L (135-145); TOTAL CARBON DIOXIDE 19.2 MMOL/L (24-32); eGFR 41 ML/MIN
[2018-10-16 03:22] LABS: PARTIAL THROMBOPLASTIN TIME 30 SECONDS (22-32); PROTHROMBIN TIME 10.4 SECONDS (9.0-12.0)
[2018-10-16] MEDS: potassium Cl 20mEq/100mL bag 100 ML IV PRN (03:52)
[2018-10-16 04:01] LABS: ABG BASE EXCESS -3.4 mmol/L (-2.0-3.0); ABG HCO3 20.5 mmol/L (22.0-26.0); ABG OXYGEN SATURATION 93.1 % (95-98); ABG PCO2 (T) 32.3 mmHg (32.0-45.0); ABG PO2 (T) 68.2 mmHg (83-108); FCOHb 0.3 % (0.5-1.5); FMetHb 0.3 % (0.3-1.12); FO2Hb 92.5 % (94-100); MINUTE VOLUME 7 L/min; PATIENT TEMPERATURE 36.8; PEEP 5 cm H2O; RESPIRATORY RATE (OBSERVED) 18 b/min; TOTAL HEMOGLOBIN 9.6 G/dl (12.0-16.0)
[2018-10-16] MEDS ORDERED: aspirin 325mg tablet, delayed-release (Ecotrin) PO SCH (08:00)
[2018-10-16] MEDS ORDERED: metoprolol tartrate 12.5mg (1/2 tablet) PO SCH (08:00)
[2018-10-16] MEDS ORDERED: atorvastatin 10mg tablet PO SCH (08:00)
[2018-10-16] MEDS: vancomycin/NS 1 GM ADD-VANTAGE 250 ML IV SCH ×2 (08:49→21:04)
[2018-10-16] MEDS: docusate sod 100mg capsule PO SCH ×2 (08:49→20:00)
[2018-10-16] MEDS: mupirocin 2% nasal ointment 1gm UD NS SCH ×2 (08:49→21:04)
[2018-10-16] MEDS: pantoprazole 40mg Tablet.DR PO SCH (08:49)
[2018-10-16] MEDS: insulin Lispro (HumaLOG) vial - multi-dose SQ SCH ×3 (09:06→17:20)
[2018-10-16] MEDS: ondansetron/PF 4mg/2ml inj IV PRN ×2 (10:19→21:20)
[2018-10-16] MEDS: insulin regular, human inj. 100 UNITS in normal saline 100ml IV soln 100 ML IV SCH ×2 (10:25)
[2018-10-16] MEDS: albumin (Human) 5% 250ml 250 ML IV PRN (12:03)
[2018-10-16] MEDS ORDERED: MIDAZolam 5mg/5ml vial ONE (15:58)
[2018-10-16] MEDS ORDERED: fentaNYL /PF 50mcg/ml 5ml ampule ONE (15:58)
[2018-10-16] MEDS ORDERED: DOPamine/D5W 400mg/250ml bag IV ONE (16:10)
[2018-10-16] MEDS ORDERED: neostigmine methylsulfate 1 MG/ML 10ml vial ONE (16:10)
[2018-10-16] MEDS ORDERED: heparin 1,000 units/ml 10ml inj ONE (16:10)
[2018-10-16] MEDS ORDERED: LIDOcaine 1%/PF 5ML 10 MG/ML VIAL ONE (16:10)
[2018-10-16] MEDS ORDERED: glycopyrrolate 0.2mg/ml inj ONE (16:10)
[2018-10-16] MEDS ORDERED: sevoflurane 250ml liquid IH ONE (16:10)
[2018-10-16] MEDS ORDERED: rocuronium 10mg/ml inj IV ONE (16:33)
[2018-10-16] MEDS ORDERED: ondansetron/PF 4mg/2ml inj ONE (16:33)
[2018-10-16] MEDS ORDERED: propofol inj 20 ML IV ONE (16:33)
[2018-10-16] MEDS ORDERED: albumin (Human) 5% 250ml 250 ML IV ONE (16:37)
[2018-10-16] MEDS ORDERED: heparin 1,000unit/ml 10ml vial 10 ML ONE (16:58)
[2018-10-16] MEDS ORDERED: heparin 10,000 units/1 ML INJ ONE (17:05)
[2018-10-16] MEDS ORDERED: sugammadex 200mg/2ml injection IV ONE (17:22)
[2018-10-16 18:51] LABS: BASOPHILS % (AUTO) 0 % (0-1); EOSINOPHILS % (AUTO) 0 % (0-6); HEMATOCRIT 25.7 % (35.0-45.0); HEMOGLOBIN 8.3 g/dl (12.0-16.0); LYMPHOCYTES # (AUTO) 0.8 X10'3 (1.1-4.8); LYMPHOCYTES % (AUTO) 4.2 % (21-51); MEAN CORPUSCULAR HEMOGLOBIN 26.1 PG (27.0-31.0); MEAN CORPUSCULAR HGB CONC 32.1 % (33.0-36.5); MEAN CORPUSCULAR VOLUME 81.4 FL (78-98); MEAN PLATELET VOLUME 11.3 FL (7.4-10.4); MONOCYTES # (AUTO) 1.2 X10'3 (0-0.9); MONOCYTES % (AUTO) 5.9 % (2-12); NEUTROPHILS # (AUTO) 17.9 X10'3 (1.8-7.7); NEUTROPHILS % (AUTO) 89.9 % (42-75); PLATELET COUNT 93 X10'3 (140-440); RED BLOOD COUNT 3.16 X10'6 (4.20-5.60); RED CELL DISTRIBUTION WIDTH 15.9 % (11.5-14.5); WHITE BLOOD COUNT 19.9 X10'3 (4.5-11.0)
[2018-10-16 19:07] LABS: ALANINE AMINOTRANSFERASE 35 U/L (12-78); ALBUMIN 3.4 G/DL (3.4-5.0); ALBUMIN/GLOBULIN RATIO 1.7 (1.1-1.5); ALKALINE PHOSPHATASE 46 IU/L (46-116); ANION GAP 12 (8-16); ASPARTATE AMINO TRANSFERASE 129 U/L (10-37); BILIRUBIN,TOTAL 0.4 MG/DL (0.1-1.0); BLOOD UREA NITROGEN 29 MG/DL (7-18); BUN/CREATININE RATIO 16.3 (6.6-38.0); CALCIUM 7.6 MG/DL (8.5-10.1); CHLORIDE 103 MMOL/L (99-107); CREATININE 1.78 MG/DL (0.40-0.90); GLUCOSE 206 MG/DL (70-104); MAGNESIUM 2.6 MG/DL (1.5-2.4); PHOSPHORUS 6.9 MG/DL (2.3-4.5); SODIUM 135 MMOL/L (135-145); TOTAL CARBON DIOXIDE 20.1 MMOL/L (24-32); TOTAL PROTEIN 5.4 G/DL (6.4-8.2); eGFR 28 ML/MIN
[2018-10-16 19:16] LABS: ANISOCYTOSIS 1+; PLATELET ESTIMATE DECREASED; POTASSIUM 6.9 MMOL/L (3.5-5.1); TOTAL CELLS COUNTED 100
[2018-10-16 19:17] LABS: LARGE PLATELETS FEW
[2018-10-16 19:18] LABS: PROTHROMBIN TIME 10.7 SECONDS (9.0-12.0)
[2018-10-16 19:19] LABS: INR 1.1 INR
[2018-10-16 19:44] LABS: PARTIAL THROMBOPLASTIN TIME 134 SECONDS (22-32)
[2018-10-16] MEDS: carvedilol 6.25mg tablet PO SCH (20:00)
[2018-10-16 20:08] LABS: ALANINE AMINOTRANSFERASE 42 U/L (12-78); ALBUMIN 3.3 G/DL (3.4-5.0); ALBUMIN/GLOBULIN RATIO 1.7 (1.1-1.5); ALKALINE PHOSPHATASE 40 IU/L (46-116); ANION GAP 10 (8-16); ASPARTATE AMINO TRANSFERASE 163 U/L (10-37); BILIRUBIN,TOTAL 0.4 MG/DL (0.1-1.0); BLOOD UREA NITROGEN 29 MG/DL (7-18); CALCIUM 7.6 MG/DL (8.5-10.1); CHLORIDE 105 MMOL/L (99-107); CREATININE 1.81 MG/DL (0.40-0.90); GLUCOSE 187 MG/DL (70-104); MAGNESIUM 2.6 MG/DL (1.5-2.4); PHOSPHORUS 7.3 MG/DL (2.3-4.5); SODIUM 136 MMOL/L (135-145); TOTAL CARBON DIOXIDE 20.9 MMOL/L (24-32); TOTAL PROTEIN 5.3 G/DL (6.4-8.2); eGFR 27 ML/MIN
[2018-10-16 20:12] LABS: POTASSIUM 6.1 MMOL/L (3.5-5.1)
[2018-10-16] MEDS ORDERED: furosemide 40mg/4ml inj IV ONE (20:30)
[2018-10-16] MEDS ORDERED: furosemide 40mg/4ml inj ONE (20:38)
[2018-10-16] MEDS ORDERED: lisinopril 5mg tablet PO SCH (21:00)
[2018-10-16] MEDS ORDERED: LORazepam 2 mg/ml vial IV PRN (22:00)
[2018-10-16] MEDS ORDERED: atropine 0.1mg/ml 10ml syringe ONE (23:22)
[2018-10-16] MEDS ORDERED: flumazenil 0.1 mg/ml inj. IV ONE (23:40)
[2018-10-16 23:50] LABS: BASOPHILS % (AUTO) 0 % (0-1); EOSINOPHILS # (AUTO) 0.1 X10'3 (0-0.9); EOSINOPHILS % (AUTO) 0.7 % (0-6); HEMATOCRIT 26.7 % (35.0-45.0); HEMOGLOBIN 8.6 g/dl (12.0-16.0); LYMPHOCYTES # (AUTO) 0.6 X10'3 (1.1-4.8); MEAN CORPUSCULAR HEMOGLOBIN 26.4 PG (27.0-31.0); MEAN CORPUSCULAR HGB CONC 32.4 % (33.0-36.5); MEAN CORPUSCULAR VOLUME 81.5 FL (78-98); MEAN PLATELET VOLUME 10.9 FL (7.4-10.4); MONOCYTES # (AUTO) 1.1 X10'3 (0-0.9); MONOCYTES % (AUTO) 6.1 % (2-12); NEUTROPHILS # (AUTO) 16.6 X10'3 (1.8-7.7); NEUTROPHILS % (AUTO) 90.2 % (42-75); PLATELET COUNT 93 X10'3 (140-440); RED BLOOD COUNT 3.27 X10'6 (4.20-5.60); RED CELL DISTRIBUTION WIDTH 16.5 % (11.5-14.5); WHITE BLOOD COUNT 18.4 X10'3 (4.5-11.0)
[2018-10-17] VITALS (27 sets, daily range): BP systolic 80–144; BP diastolic 41–70
[2018-10-17] MEDS: ceFAZolin 1GM/D5W- ADD-VANTAGE 50 ML IV SCH
[2018-10-17 00:07] LABS: ALANINE AMINOTRANSFERASE 171 U/L (12-78); ALBUMIN/GLOBULIN RATIO 1.4 (1.1-1.5); ALKALINE PHOSPHATASE 46 IU/L (46-116); ANION GAP 13 (8-16); ASPARTATE AMINO TRANSFERASE 522 U/L (10-37); BILIRUBIN,TOTAL 0.6 MG/DL (0.1-1.0); BLOOD UREA NITROGEN 33 MG/DL (7-18); BUN/CREATININE RATIO 15.5 (6.6-38.0); CALCIUM 7.2 MG/DL (8.5-10.1); CHLORIDE 102 MMOL/L (99-107); CREATININE 2.13 MG/DL (0.40-0.90); GLUCOSE 217 MG/DL (70-104); MAGNESIUM 2.9 MG/DL (1.5-2.4); SODIUM 133 MMOL/L (135-145); TOTAL CARBON DIOXIDE 17.6 MMOL/L (24-32); TOTAL PROTEIN 5.1 G/DL (6.4-8.2); eGFR 23 ML/MIN
[2018-10-17 00:08] LABS: PHOSPHORUS 10.4 MG/DL (2.3-4.5)
[2018-10-17 00:11] LABS: POTASSIUM 8.5 MMOL/L (3.5-5.1)
[2018-10-17 00:16] LABS: ISTAT HGB 8.5 g/dl (12.0-16.0); ISTAT IONIZED CALCIUM 1.01 mmol/L (1.03-1.32)
[2018-10-17 00:20] LABS: ABG BASE EXCESS -13.8 mmol/L (-2.0-3.0); ABG HCO3 13.7 mmol/L (22.0-26.0); ABG OXYGEN SATURATION 88.8 % (95-98); ABG PCO2 (T) 33.4 mmHg (32.0-45.0); ABG PH (T) 7.213 (7.350-7.450); ABG PO2 (T) 57.2 mmHg (83-108); ALLEN'S TEST Positive; FCOHb 0.3 % (0.5-1.5); FMetHb 0.2 % (0.3-1.12); FO2Hb 88.4 % (94-100); TOTAL HEMOGLOBIN 9.6 G/dl (12.0-16.0)
[2018-10-17] MEDS ORDERED: NORepinephrine 8mg/ 250ml NS 250 ML IV ONE (00:23)
[2018-10-17] MEDS ORDERED: rocuronium 10mg/ml inj IV ONE (00:25)
[2018-10-17] MEDS ORDERED: etomidate 2mg/ml inj. IV ONE (00:25)
[2018-10-17] MEDS ORDERED: sodium bicarb (8.4%) ped inj. 50 MEQ in normal saline 100ml IV soln 100 ML IV ONE (00:25)
[2018-10-17 00:40] LABS: TOTAL CELLS COUNTED 100
[2018-10-17 00:41] LABS: ANISOCYTOSIS 1+; PLATELET ESTIMATE DECREASED
[2018-10-17 00:42] LABS: LARGE PLATELETS FEW
[2018-10-17] MEDS ORDERED: ipratropium/albuterol 3ml nebule NEB PRN (00:45)
[2018-10-17] MEDS ORDERED: midazolam 100mg in NS 100ml 100 ML IV PRN (00:45)
[2018-10-17] MEDS ORDERED: FENTANYL-0.9 % NACL/PF 100 ML IV PRN (00:45)
[2018-10-17] MEDS ORDERED: normal saline 1000ml 250 ML IV PRN ×2 (00:49→14:14)
[2018-10-17] MEDS ORDERED: normal saline 1000ml 100 ML IV PRN ×2 (00:49→14:14)
[2018-10-17] MEDS ORDERED: heparin 1,000 units/ml 10ml inj HE ONE ×4 (00:55→14:20)
[2018-10-17] MEDS ORDERED: vasopressin inj. 60 UNIT in normal saline 100ml IV soln 97 ML IV SCH (01:30)
[2018-10-17 01:40] LABS: ABG BASE EXCESS -7.3 mmol/L (-2.0-3.0); ABG HCO3 18.4 mmol/L (22.0-26.0); ABG OXYGEN SATURATION 95.8 % (95-98); ABG PCO2 (T) 36.2 mmHg (32.0-45.0); ABG PH (T) 7.319 (7.350-7.450); ABG PO2 (T) 89.1 mmHg (83-108); FCOHb 0.3 % (0.5-1.5); FMetHb 0.2 % (0.3-1.12); FO2Hb 95.3 % (94-100); MINUTE VOLUME 7 L/min; PATIENT TEMPERATURE 35.8; PEEP 5 cm H2O; RESPIRATORY RATE 16 b/min; RESPIRATORY RATE (OBSERVED) 16 b/min; TIDAL VOLUME 400 mL; TOTAL HEMOGLOBIN 8.3 G/dl (12.0-16.0)
[2018-10-17 01:54] LABS: ALBUMIN 2.2 G/DL (3.4-5.0); ANION GAP 11 (8-16); BLOOD UREA NITROGEN 32 MG/DL (7-18); BUN/CREATININE RATIO 18.4 (6.6-38.0); CHLORIDE 112 MMOL/L (99-107); CREATININE 1.74 MG/DL (0.40-0.90); GLUCOSE 179 MG/DL (70-104); POTASSIUM 4.6 MMOL/L (3.5-5.1); SODIUM 143 MMOL/L (135-145); eGFR 28 ML/MIN
[2018-10-17 02:58] LABS: ALBUMIN 2.8 G/DL (3.4-5.0); ALBUMIN/GLOBULIN RATIO 1.5 (1.1-1.5); ALKALINE PHOSPHATASE 47 IU/L (46-116); ANION GAP 15 (8-16); BILIRUBIN,TOTAL 0.6 MG/DL (0.1-1.0); BLOOD UREA NITROGEN 37 MG/DL (7-18); BUN/CREATININE RATIO 16.9 (6.6-38.0); CALCIUM 8.3 MG/DL (8.5-10.1); CHLORIDE 105 MMOL/L (99-107); CREATININE 2.19 MG/DL (0.40-0.90); GLUCOSE 169 MG/DL (70-104); MAGNESIUM 2.7 MG/DL (1.5-2.4); PHOSPHORUS 8.8 MG/DL (2.3-4.5); POTASSIUM 5.6 MMOL/L (3.5-5.1); SODIUM 139 MMOL/L (135-145); TOTAL CARBON DIOXIDE 19.5 MMOL/L (24-32); TOTAL PROTEIN 4.7 G/DL (6.4-8.2); eGFR 22 ML/MIN
[2018-10-17 03:00] LABS: ALANINE AMINOTRANSFERASE 1109 U/L (12-78); ASPARTATE AMINO TRANSFERASE 1572 U/L (10-37)
[2018-10-17 04:36] LABS: ABG BASE EXCESS -1.5 mmol/L (-2.0-3.0); ABG HCO3 22.5 mmol/L (22.0-26.0); ABG OXYGEN SATURATION 91.8 % (95-98); ABG PCO2 (T) 33.7 mmHg (32.0-45.0); ABG PH (T) 7.438 (7.350-7.450); ABG PO2 (T) 58.4 mmHg (83-108); FCOHb 0.3 % (0.5-1.5); FMetHb 0.3 % (0.3-1.12); FO2Hb 91.2 % (94-100); MINUTE VOLUME 9 L/min; PATIENT TEMPERATURE 35.9; PEEP 5 cm H2O; RESPIRATORY RATE 22 b/min; RESPIRATORY RATE (OBSERVED) 22 b/min; TIDAL VOLUME 400 mL; TOTAL HEMOGLOBIN 10.1 G/dl (12.0-16.0)
[2018-10-17] MEDS ORDERED: sodium bicarbonate (8.4%) 1 mEq/ml syringe IV ONE ×3 (05:10→20:50)
[2018-10-17] MEDS ORDERED: ceFAZolin 1GM/D5W- ADD-VANTAGE 50 ML IV ONE (05:50)
[2018-10-17 06:45] LABS: BASOPHILS % (AUTO) 0 % (0-1); EOSINOPHILS % (AUTO) 0 % (0-6); HEMATOCRIT 27.3 % (35.0-45.0); LYMPHOCYTES # (AUTO) 0.9 X10'3 (1.1-4.8); LYMPHOCYTES % (AUTO) 4.7 % (21-51); MEAN CORPUSCULAR HEMOGLOBIN 26.5 PG (27.0-31.0); MEAN CORPUSCULAR HGB CONC 32.8 % (33.0-36.5); MEAN CORPUSCULAR VOLUME 80.6 FL (78-98); MEAN PLATELET VOLUME 13.3 FL (7.4-10.4); MONOCYTES # (AUTO) 1.3 X10'3 (0-0.9); MONOCYTES % (AUTO) 7.3 % (2-12); PLATELET COUNT 79 X10'3 (140-440); RED BLOOD COUNT 3.39 X10'6 (4.20-5.60); WHITE BLOOD COUNT 18.1 X10'3 (4.5-11.0)
[2018-10-17 07:29] LABS: ANISOCYTOSIS 1+; MICROCYTOSIS 1+; PLATELET ESTIMATE DECREASED; TOTAL CELLS COUNTED 100
[2018-10-17 07:36] LABS: ALBUMIN 3.1 G/DL (3.4-5.0); ALBUMIN/GLOBULIN RATIO 1.5 (1.1-1.5); ALKALINE PHOSPHATASE 47 IU/L (46-116); ANION GAP 16 (8-16); BILIRUBIN,TOTAL 0.8 MG/DL (0.1-1.0); BLOOD UREA NITROGEN 23 MG/DL (7-18); BUN/CREATININE RATIO 17.4 (6.6-38.0); CALCIUM 7.7 MG/DL (8.5-10.1); CHLORIDE 102 MMOL/L (99-107); CREATININE 1.32 MG/DL (0.40-0.90); GLUCOSE 126 MG/DL (70-104); MAGNESIUM 2.1 MG/DL (1.5-2.4); PHOSPHORUS 5.2 MG/DL (2.3-4.5); POTASSIUM 4.2 MMOL/L (3.5-5.1); SODIUM 138 MMOL/L (135-145); TOTAL CARBON DIOXIDE 20.4 MMOL/L (24-32); TOTAL PROTEIN 5.2 G/DL (6.4-8.2); eGFR 39 ML/MIN
[2018-10-17 07:53] LABS: ALANINE AMINOTRANSFERASE 2393 U/L (12-78); ASPARTATE AMINO TRANSFERASE 3378 U/L (10-37)
[2018-10-17] MEDS: docusate sod 100mg capsule PO SCH (08:00)
[2018-10-17] MEDS: pantoprazole 40mg Tablet.DR PO SCH (08:26)
[2018-10-17] MEDS: mupirocin 2% nasal ointment 1gm UD NS SCH (08:26)
[2018-10-17] MEDS: aspirin 81mg tab.chew PO SCH (08:26)
[2018-10-17] MEDS: atorvastatin 20mg tablet PO SCH (08:26)
[2018-10-17] MEDS: insulin Lispro (HumaLOG) vial - multi-dose SQ SCH ×3 (08:45→18:00)
[2018-10-17] MEDS: carvedilol 6.25mg tablet PO SCH ×2 (08:57→19:05)
[2018-10-17] MEDS ORDERED: propofol 1000mg/100ml bottle 100 ML IV PRN (09:00)
[2018-10-17 09:04] LABS: ISTAT K 8.1 mmol/L (3.5-5.1)
[2018-10-17] MEDS: insulin regular, human inj. 100 UNITS in normal saline 100ml IV soln 100 ML IV SCH ×6 (10:25→21:42)
[2018-10-17 10:34] LABS: BASOPHILS % (AUTO) 0 % (0-1); EOSINOPHILS % (AUTO) 0 % (0-6); HEMATOCRIT 27.7 % (35.0-45.0); HEMOGLOBIN 9.1 g/dl (12.0-16.0); LYMPHOCYTES # (AUTO) 0.8 X10'3 (1.1-4.8); LYMPHOCYTES % (AUTO) 6.6 % (21-51); MEAN CORPUSCULAR HEMOGLOBIN 26.4 PG (27.0-31.0); MEAN CORPUSCULAR HGB CONC 32.7 % (33.0-36.5); MEAN CORPUSCULAR VOLUME 80.6 FL (78-98); MEAN PLATELET VOLUME 12.6 FL (7.4-10.4); MONOCYTES # (AUTO) 0.9 X10'3 (0-0.9); MONOCYTES % (AUTO) 6.8 % (2-12); NEUTROPHILS % (AUTO) 86.6 % (42-75); PLATELET COUNT 81 X10'3 (140-440); RED BLOOD COUNT 3.43 X10'6 (4.20-5.60); RED CELL DISTRIBUTION WIDTH 16.2 % (11.5-14.5); WHITE BLOOD COUNT 12.7 X10'3 (4.5-11.0)
[2018-10-17 11:05] LABS: ANION GAP 19 (8-16); BLOOD UREA NITROGEN 29 MG/DL (7-18); CALCIUM 7.6 MG/DL (8.5-10.1); CHLORIDE 101 MMOL/L (99-107); CREATININE 2.23 MG/DL (0.40-0.90); GLUCOSE 96 MG/DL (70-104); PHOSPHORUS 8.5 MG/DL (2.3-4.5); SODIUM 135 MMOL/L (135-145); TOTAL CARBON DIOXIDE 15.4 MMOL/L (24-32); TRIGLYCERIDES 101 MG/DL (20-135); eGFR 21 ML/MIN
[2018-10-17 11:09] LABS: POTASSIUM 7.6 MMOL/L (3.5-5.1)
[2018-10-17] MEDS ORDERED: calcium chloride 100 MG/1 ML inj IV ONE ×3 (11:20→20:50)
[2018-10-17 11:29] LABS: CREATINE KINASE 46252 U/L (26-192)
[2018-10-17 11:45] LABS: ABG BASE EXCESS -14.3 mmol/L (-2.0-3.0); ABG HCO3 11.3 mmol/L (22.0-26.0); ABG OXYGEN SATURATION 96.5 % (95-98); ABG PCO2 (T) 25.6 mmHg (32.0-45.0); ABG PH (T) 7.261 (7.350-7.450); ABG PO2 (T) 110.8 mmHg (83-108); FCOHb 0.2 % (0.5-1.5); FMetHb 0.1 % (0.3-1.12); FO2Hb 96.2 % (94-100); PEEP 10 cm H2O; RESPIRATORY RATE 22 b/min; TIDAL VOLUME 400 mL
[2018-10-17] MEDS ORDERED: furosemide 10 MG/1 ML 10ml inj IV SCH (12:05)
[2018-10-17] MEDS: sodium chloride 0.45% 1,000 ML IV SCH (14:29)
[2018-10-17] MEDS ORDERED: dextrose ORAL solution 15 GM/59 ML bottle PO PRN ×2 (15:30)
[2018-10-17] MEDS ORDERED: dextrose 50%-water 50ml dispensing syringe IV PRN (15:30)
[2018-10-17] MEDS ORDERED: glucagon, human recombinant 1mg kit SUBCUT PRN (15:30)
[2018-10-17] MEDS: dextrose 50%-water 50ml dispensing syringe IV PRN ×2 (15:32→19:54)
[2018-10-17] MEDS: docusate sodium 100mg/10ml UD cup PO SCH (19:56)
[2018-10-17 20:16] LABS: ABG HCO3 10.1 mmol/L (22.0-26.0); ABG OXYGEN SATURATION 96.2 % (95-98); ABG PCO2 (T) 24.3 mmHg (32.0-45.0); ABG PH (T) 7.236 (7.350-7.450); ABG PO2 (T) 110.3 mmHg (83-108); FCOHb 0.4 % (0.5-1.5); FMetHb 0.1 % (0.3-1.12); FO2Hb 95.7 % (94-100); PATIENT TEMPERATURE 36.5; PEEP 10 cm H2O; RESPIRATORY RATE 22 b/min; RESPIRATORY RATE (OBSERVED) 22 b/min; TIDAL VOLUME 400 mL; TOTAL HEMOGLOBIN 7.3 G/dl (12.0-16.0)
[2018-10-17] MEDS ORDERED: Dextrose 10%-water IV solution 1,000 ML IV SCH (20:40)
[2018-10-17] MEDS ORDERED: albuterol 2.5 MG/3 ML nebule CONTNEB ONE ×2 (20:50)
[2018-10-17] MEDS ORDERED: insulin regular, human 10 units/0.1 ml syringe IV ONE ×2 (20:50)
[2018-10-17] MEDS ORDERED: dextrose 50%-water 50ml dispensing syringe IV ONE ×2 (20:50)
[2018-10-17] MEDS: NORepinephrine 8mg/ 250ml NS 250 ML IV PRN (21:49)
[2018-10-17] MEDS ORDERED: cefepime 1GM/NS ADD-VANTAGE 100 ML IV SCH (21:55)
[2018-10-17] MEDS ORDERED: vancomycin/NS 1 GM ADD-VANTAGE 250 ML X 1 DOSE IV ONE (22:05)
[2018-10-17] MEDS ORDERED: sevoflurane 250ml liquid IH ONE (22:05)
[2018-10-17] MEDS ORDERED: NORepinephrine bitartrate 8 MG in NS 250 ML BAG (32 mcg/ml) IV ONE (22:05)
[2018-10-17 22:30] LABS: PLATELET COUNT 30 X10'3 (140-440)
[2018-10-17] MEDS ORDERED: magnesium 4gm in 100ml NS 100 ML IV PRN (23:20)
[2018-10-17] MEDS ORDERED: calcium chloride inj. 1,000 MG in normal saline 100ml IV soln 100 ML IV PRN (23:20)
[2018-10-17] MEDS ORDERED: sodium phosphate inj. 30 MMOL in normal saline 250ml IV soln 250 ML IV PRN (23:20)
[2018-10-17] MEDS ORDERED: potassium Cl 20mEq/100mL bag 100 ML IV PRN (23:20)
[2018-10-17] MEDS ORDERED: pantoprazole 40 MG vial IV ONE (23:30)
[2018-10-17 23:48] LABS: BASOPHILS % (AUTO) 0.1 % (0-1); EOSINOPHILS % (AUTO) 0 % (0-6); LYMPHOCYTES # (AUTO) 0.8 X10'3 (1.1-4.8); LYMPHOCYTES % (AUTO) 8.2 % (21-51); MEAN CORPUSCULAR HEMOGLOBIN 27.2 PG (27.0-31.0); MEAN CORPUSCULAR VOLUME 82.3 FL (78-98); MEAN PLATELET VOLUME 12.5 FL (7.4-10.4); MONOCYTES # (AUTO) 0.7 X10'3 (0-0.9); MONOCYTES % (AUTO) 6.8 % (2-12); NEUTROPHILS # (AUTO) 8.8 X10'3 (1.8-7.7); NEUTROPHILS % (AUTO) 84.9 % (42-75); RED BLOOD COUNT 2.35 X10'6 (4.20-5.60); RED CELL DISTRIBUTION WIDTH 16.3 % (11.5-14.5); WHITE BLOOD COUNT 10.3 X10'3 (4.5-11.0)
[2018-10-17 23:55] LABS: OXYGEN SATURATION (MIXED VEN) 38.9 % (60-80)
[2018-10-17 23:59] LABS: HEMATOCRIT 19.3 % (35.0-45.0); HEMOGLOBIN 6.4 g/dl (12.0-16.0)
[2018-10-18] VITALS (28 sets, daily range): BP systolic 84–142; BP diastolic 43–81
[2018-10-18] LABS: PLATELET COUNT 39 X10'3 (140-440)
[2018-10-18 00:03] LABS: ANISOCYTOSIS 1+; PLATELET ESTIMATE DECREASED; TOTAL CELLS COUNTED 100
[2018-10-18 00:04] LABS: INR 3.1 INR; PROTHROMBIN TIME 29.8 SECONDS (9.0-12.0)
[2018-10-18 00:05] LABS: D-DIMER > 35.20 MG/L FEU (0-0.50); PARTIAL THROMBOPLASTIN TIME 56 SECONDS (22-32)
[2018-10-18 00:24] LABS: ALBUMIN 1.8 G/DL (3.4-5.0); ALKALINE PHOSPHATASE 110 IU/L (46-116); ANION GAP 23 (8-16); BILIRUBIN,TOTAL 1.6 MG/DL (0.1-1.0); BLOOD UREA NITROGEN 25 MG/DL (7-18); BUN/CREATININE RATIO 10.4 (6.6-38.0); CALCIUM 7.8 MG/DL (8.5-10.1); CHLORIDE 101 MMOL/L (99-107); GLUCOSE 185 MG/DL (70-104); MAGNESIUM 2.3 MG/DL (1.5-2.4); SODIUM 137 MMOL/L (135-145); TOTAL PROTEIN 3.6 G/DL (6.4-8.2); eGFR 20 ML/MIN
[2018-10-18 00:25] LABS: PHOSPHORUS 11.8 MG/DL (2.3-4.5)
[2018-10-18 00:26] LABS: POTASSIUM 7.1 MMOL/L (3.5-5.1); TOTAL CARBON DIOXIDE 13.1 MMOL/L (24-32)
[2018-10-18] MEDS ORDERED: calcium chloride 100 MG/1 ML inj IV ONE ×2 (00:30→04:45)
[2018-10-18] MEDS ORDERED: sodium bicarbonate (8.4%) 1 mEq/ml syringe IV ONE ×3 (00:30→05:35)
[2018-10-18 00:35] LABS: INR 3.3 INR; PROTHROMBIN TIME 31.4 SECONDS (9.0-12.0)
[2018-10-18] MEDS ORDERED: insulin regular, human 10 units/0.1 ml syringe IV ONE ×2 (00:35→04:45)
[2018-10-18] MEDS ORDERED: dextrose 50%-water 50ml dispensing syringe IV ONE ×2 (00:35→04:45)
[2018-10-18] MEDS ORDERED: albuterol 2.5 MG/3 ML nebule CONTNEB ONE ×2 (00:35→04:45)
[2018-10-18 00:36] LABS: PARTIAL THROMBOPLASTIN TIME 49 SECONDS (22-32)
[2018-10-18] MEDS ORDERED: vasoPRESSIN 20 units/ml inj. ONE (00:47)
[2018-10-18 00:48] LABS: ALANINE AMINOTRANSFERASE > 7000 U/L (12-78)
[2018-10-18 00:51] LABS: ABG OXYGEN SATURATION 87.1 % (95-98); ABG PCO2 (T) 35.5 mmHg (32.0-45.0); ABG PH (T) 7.292 (7.350-7.450); ABG PO2 (T) 63.4 mmHg (83-108); FCOHb 0.3 % (0.5-1.5); FMetHb 0.7 % (0.3-1.12); FO2Hb 86.2 % (94-100); PEEP 10 cm H2O; RESPIRATORY RATE 22 b/min; RESPIRATORY RATE (OBSERVED) 22 b/min; TIDAL VOLUME 400 mL; TOTAL HEMOGLOBIN 5.3 G/dl (12.0-16.0)
[2018-10-18] MEDS: BICARB DIALYSIS W/CALCIUM SOL 5,000 ML HE SCH ×2 (00:52→00:53)
[2018-10-18 00:53] LABS: ASPARTATE AMINO TRANSFERASE > 7000 U/L (10-37)
[2018-10-18] MEDS ORDERED: hydrocortisone sod succ/PF 250mg/2ml inj. IV ONE (00:55)
[2018-10-18] MEDS ORDERED: hydrocortisone sod succ/PF 100mg/2ml inj. IV ONE (01:15)
[2018-10-18] MEDS ORDERED: amiodarone 150mg/dext, iso-os 100 ML IV ONE (01:20)
[2018-10-18] MEDS ORDERED: argatroban in NS 50mg/50ml 50 ML IV SCH (01:50)
[2018-10-18] MEDS: amiodarone/D5 360MG/200ML BAG 200 ML IV SCH ×2 (01:54→07:41)
[2018-10-18] MEDS: mineral oil/petrolatum ophthal oint EACHEYE SCH ×2 (02:25→09:56)
[2018-10-18 03:37] LABS: BASOPHILS % (AUTO) 0.2 % (0-1); EOSINOPHILS % (AUTO) 0.1 % (0-6); HEMOGLOBIN 7.3 g/dl (12.0-16.0); LYMPHOCYTES # (AUTO) 1.1 X10'3 (1.1-4.8); LYMPHOCYTES % (AUTO) 12.6 % (21-51); MEAN CORPUSCULAR HEMOGLOBIN 28.8 PG (27.0-31.0); MEAN CORPUSCULAR HGB CONC 33.3 % (33.0-36.5); MEAN CORPUSCULAR VOLUME 86.5 FL (78-98); MEAN PLATELET VOLUME 8.6 FL (7.4-10.4); MONOCYTES # (AUTO) 0.6 X10'3 (0-0.9); MONOCYTES % (AUTO) 6.4 % (2-12); NEUTROPHILS % (AUTO) 80.7 % (42-75); PLATELET COUNT 77 X10'3 (140-440); RED BLOOD COUNT 2.52 X10'6 (4.20-5.60); RED CELL DISTRIBUTION WIDTH 16.5 % (11.5-14.5); WHITE BLOOD COUNT 8.7 X10'3 (4.5-11.0)
[2018-10-18 03:50] LABS: HEMATOCRIT 21.8 % (35.0-45.0)
[2018-10-18 03:53] LABS: NUCLEATED RED BLOOD CELLS 2 /100WBC (0-0); TOTAL CELLS COUNTED 100
[2018-10-18 03:54] LABS: ANISOCYTOSIS 1+; BURR CELLS FEW; PLATELET ESTIMATE DECREASED; TOXIC VACUOLATION 1+
[2018-10-18 04:47] LABS: ALBUMIN 1.9 G/DL (3.4-5.0); ANION GAP 24 (8-16); BLOOD UREA NITROGEN 18 MG/DL (7-18); BUN/CREATININE RATIO 10.3 (6.6-38.0); CHLORIDE 104 MMOL/L (99-107); CREATININE 1.74 MG/DL (0.40-0.90); GLUCOSE 177 MG/DL (70-104); MAGNESIUM 2.1 MG/DL (1.5-2.4); PHOSPHORUS 8.6 MG/DL (2.3-4.5); SODIUM 139 MMOL/L (135-145); eGFR 28 ML/MIN
[2018-10-18 04:48] LABS: POTASSIUM 6.5 MMOL/L (3.5-5.1)
[2018-10-18 05:00] LABS: ABG BASE EXCESS -17.7 mmol/L (-2.0-3.0); ABG HCO3 9.4 mmol/L (22.0-26.0); ABG OXYGEN SATURATION 87.2 % (95-98); ABG PCO2 (T) 24.1 mmHg (32.0-45.0); ABG PH (T) 7.195 (7.350-7.450); FCOHb 0.2 % (0.5-1.5); PATIENT TEMPERATURE 34.3; PEEP 10 cm H2O; RESPIRATORY RATE 22 b/min; RESPIRATORY RATE (OBSERVED) 22 b/min; TIDAL VOLUME 400 mL; TOTAL HEMOGLOBIN 7.9 G/dl (12.0-16.0)
[2018-10-18 05:05] LABS: OXYGEN SATURATION (MIXED VEN) 46.3 % (60-80); PO2 MIXED VENOUS (TEMP COR) 24.4 mmHg (35-46)
[2018-10-18] MEDS: sodium bicarbonate (8.4%) inj. 150 MEQ in dextrose 5%-water 1,000 ML IV SCH ×2 (05:54→11:24)
[2018-10-18] MEDS: NORepinephrine 8mg/ 250ml NS 250 ML IV PRN (07:18)
[2018-10-18 07:23] LABS: ALBUMIN 1.5 G/DL (3.4-5.0); ANION GAP 22 (8-16); BLOOD UREA NITROGEN 18 MG/DL (7-18); BUN/CREATININE RATIO 10.7 (6.6-38.0); CALCIUM 9.6 MG/DL (8.5-10.1); CHLORIDE 104 MMOL/L (99-107); CREATININE 1.69 MG/DL (0.40-0.90); GLUCOSE 262 MG/DL (70-104); MAGNESIUM 1.7 MG/DL (1.5-2.4); SODIUM 141 MMOL/L (135-145); TOTAL CARBON DIOXIDE 15.3 MMOL/L (24-32); eGFR 29 ML/MIN
[2018-10-18 07:43] LABS: POTASSIUM 6.2 MMOL/L (3.5-5.1)
[2018-10-18 07:46] LABS: BASOPHILS % (AUTO) 0.1 % (0-1); EOSINOPHILS % (AUTO) 0.1 % (0-6); LYMPHOCYTES # (AUTO) 0.9 X10'3 (1.1-4.8); LYMPHOCYTES % (AUTO) 15.1 % (21-51); MEAN CORPUSCULAR HEMOGLOBIN 28.5 PG (27.0-31.0); MEAN CORPUSCULAR HGB CONC 33.4 % (33.0-36.5); MEAN CORPUSCULAR VOLUME 85.2 FL (78-98); MEAN PLATELET VOLUME 8.6 FL (7.4-10.4); MONOCYTES # (AUTO) 0.2 X10'3 (0-0.9); NEUTROPHILS % (AUTO) 80.7 % (42-75); RED BLOOD COUNT 2.45 X10'6 (4.20-5.60); RED CELL DISTRIBUTION WIDTH 16.2 % (11.5-14.5); WHITE BLOOD COUNT 6.2 X10'3 (4.5-11.0)
[2018-10-18 07:59] LABS: HEMATOCRIT 20.9 % (35.0-45.0); PLATELET COUNT 54 X10'3 (140-440)
[2018-10-18] MEDS ORDERED: hydrocortisone sod succ/PF 100mg/2ml inj. IV SCH (08:00)
[2018-10-18] MEDS: carvedilol 6.25mg tablet PO SCH (08:00)
[2018-10-18] MEDS: docusate sodium 100mg/10ml UD cup PO SCH (08:00)
[2018-10-18] MEDS: aspirin 81mg tab.chew PO SCH (08:00)
[2018-10-18 08:20] LABS: ACTIVATED CLOTTING TIME 115 SEC (101-148)
[2018-10-18 08:20] LABS: ACT @ 1.70 U 284 SEC (193-297); ACT @ 2.84 U 386 SEC (260-420); BASELINE ACT 150 SEC (101-148); PATIENT WEIGHT 65.0k KG
[2018-10-18 08:29] LABS: ANISOCYTOSIS 1+; GIANT PLATELET FEW; LARGE PLATELETS FEW; NUCLEATED RED BLOOD CELLS 3 /100WBC (0-0); PLATELET ESTIMATE DECREASED; TOTAL CELLS COUNTED 100
[2018-10-18] MEDS: insulin Lispro (HumaLOG) vial - multi-dose SQ SCH (09:00)
[2018-10-18 09:30] LABS: ABG HCO3 12.5 mmol/L (22.0-26.0); ABG OXYGEN SATURATION 97.7 % (95-98); ABG PCO2 (T) 21.2 mmHg (32.0-45.0); ABG PH (T) 7.376 (7.350-7.450); ABG PO2 (T) 100.9 mmHg (83-108); FCOHb 0.3 % (0.5-1.5); FMetHb 0.3 % (0.3-1.12); FO2Hb 97.1 % (94-100); PATIENT TEMPERATURE 34.3; PEEP 10 cm H2O; RESPIRATORY RATE 18 b/min; TIDAL VOLUME 400 mL; TOTAL HEMOGLOBIN 7.6 G/dl (12.0-16.0)
[2018-10-18 09:38] LABS: BASOPHILS % (AUTO) 0.2 % (0-1); EOSINOPHILS % (AUTO) 0 % (0-6); LYMPHOCYTES # (AUTO) 1.2 X10'3 (1.1-4.8); LYMPHOCYTES % (AUTO) 13.9 % (21-51); MEAN CORPUSCULAR HEMOGLOBIN 28.7 PG (27.0-31.0); MEAN CORPUSCULAR HGB CONC 33.8 % (33.0-36.5); MEAN CORPUSCULAR VOLUME 85.1 FL (78-98); MEAN PLATELET VOLUME 8.7 FL (7.4-10.4); MONOCYTES # (AUTO) 0.6 X10'3 (0-0.9); NEUTROPHILS # (AUTO) 6.8 X10'3 (1.8-7.7); NEUTROPHILS % (AUTO) 78.9 % (42-75); PLATELET COUNT 57 X10'3 (140-440); RED BLOOD COUNT 2.45 X10'6 (4.20-5.60); RED CELL DISTRIBUTION WIDTH 15.8 % (11.5-14.5); WHITE BLOOD COUNT 8.6 X10'3 (4.5-11.0)
[2018-10-18 09:43] LABS: HEMATOCRIT 20.8 % (35.0-45.0)
[2018-10-18 09:53] LABS: ALBUMIN 1.6 G/DL (3.4-5.0); ALBUMIN/GLOBULIN RATIO 0.9 (1.1-1.5); ALKALINE PHOSPHATASE 157 IU/L (46-116); ANION GAP 23 (8-16); BLOOD UREA NITROGEN 16 MG/DL (7-18); BUN/CREATININE RATIO 10.5 (6.6-38.0); CALCIUM 8.3 MG/DL (8.5-10.1); CHLORIDE 102 MMOL/L (99-107); CREATININE 1.52 MG/DL (0.40-0.90); GLUCOSE 268 MG/DL (70-104); SODIUM 140 MMOL/L (135-145); TOTAL CARBON DIOXIDE 15.3 MMOL/L (24-32); TOTAL PROTEIN 3.3 G/DL (6.4-8.2); eGFR 33 ML/MIN
[2018-10-18] MEDS: atorvastatin 20mg tablet PO SCH (09:56)
[2018-10-18 09:57] LABS: ALANINE AMINOTRANSFERASE > 7000 U/L (12-78); ASPARTATE AMINO TRANSFERASE > 7000 U/L (10-37)
[2018-10-18 09:58] LABS: MYELOCYTES % (MANUAL) 0 % (0-0); NUCLEATED RED BLOOD CELLS 6 /100WBC (0-0); POTASSIUM 6.5 MMOL/L (3.5-5.1); TOTAL CELLS COUNTED 100; TROPONIN I 27.01 NG/ML (0.0-0.05)
[2018-10-18 09:59] LABS: ANISOCYTOSIS 1+; PLATELET ESTIMATE DECREASED
[2018-10-18 10:01] LABS: LARGE PLATELETS FEW; TOXIC VACUOLATION 2+
[2018-10-18 11:48] LABS: ALBUMIN 1.5 G/DL (3.4-5.0); ALKALINE PHOSPHATASE 171 IU/L (46-116); ANION GAP 23 (8-16); BILIRUBIN,TOTAL 1.9 MG/DL (0.1-1.0); BLOOD UREA NITROGEN 12 MG/DL (7-18); CALCIUM 7.7 MG/DL (8.5-10.1); CHLORIDE 101 MMOL/L (99-107); CREATININE 1.34 MG/DL (0.40-0.90); GLUCOSE 284 MG/DL (70-104); SODIUM 137 MMOL/L (135-145); eGFR 38 ML/MIN
[2018-10-18 11:54] LABS: POTASSIUM 7.4 MMOL/L (3.5-5.1); TOTAL CARBON DIOXIDE 12.7 MMOL/L (24-32)
[2018-10-18 12:01] LABS: ALANINE AMINOTRANSFERASE > 7000 U/L (12-78); ASPARTATE AMINO TRANSFERASE > 7000 U/L (10-37)
[2018-10-18] MEDS ORDERED: morphine 10mg/ml inj. IV PRN ×2 (12:20→12:35)
[2018-10-18] MEDS ORDERED: LORazepam 2 mg/ml vial IV PRN (12:20)
[2018-10-18] MEDS ORDERED: lactobacillus rhamnosus 10,000 MMU CELLS/CAPSULE PO SCH (20:00)
[2018-10-18] MEDS ORDERED: pantoprazole 40MG/NS 100ML BAG 100 ML IV SCH (23:27)
[2018-10-19] MEDS ORDERED: vancomycin/NS 1 GM ADD-VANTAGE 250 ML IV SCH (02:00)
[2018-10-19 06:50] LABS: K (ABG) 6.4 mmol/L (3.3-5.1)
[2018-10-19 06:51] LABS: K (ABG) 6.4 mmol/L (3.3-5.1)
[2018-10-21] MEDS ORDERED: VANCOMYCIN LEVEL IV ONE (01:30)
== END 2018-10-18 18:06 | disposition expired | DRG 216 ==
LOC: ER 21:50 → ED HOLD 10-12 00:53 → PCU 3S 10-12 02:00 → CMPBEDREQ 10-12 02:33 → CICU 2S 10-15 13:28
PROVIDERS: ADMIT Family Medicine; ATTEND Thoracic Surgery (Cardiothoracic Vascular Surgery)
PROC: B32T1ZZ Computerized Tomography (CT Scan) of Left Pulmonary Artery using Low Osmolar Contrast (ICD-10-PCS; 2018-10-12)
PROC: B3201ZZ Computerized Tomography (CT Scan) of Thoracic Aorta using Low Osmolar Contrast (ICD-10-PCS; 2018-10-12)
PROC: B32S1ZZ Computerized Tomography (CT Scan) of Right Pulmonary Artery using Low Osmolar Contrast (ICD-10-PCS; 2018-10-12)
PROC: 4A023N8 Measurement of Cardiac Sampling and Pressure, Bilateral, Percutaneous Approach (ICD-10-PCS; 2018-10-14)
PROC: B2151ZZ Fluoroscopy of Left Heart using Low Osmolar Contrast (ICD-10-PCS; 2018-10-14)
PROC: B2111ZZ Fluoroscopy of Multiple Coronary Arteries using Low Osmolar Contrast (ICD-10-PCS; 2018-10-14)
PROC: B3101ZZ Fluoroscopy of Thoracic Aorta using Low Osmolar Contrast (ICD-10-PCS; 2018-10-14)
PROC: B31N1ZZ Fluoroscopy of Other Upper Arteries using Low Osmolar Contrast (ICD-10-PCS; 2018-10-14)
PROC: 02100Z9 Bypass Coronary Artery, One Artery from Left Internal Mammary, Open Approach (ICD-10-PCS; 2018-10-15)
PROC: 021209W Bypass Coronary Artery, Three Arteries from Aorta with Autologous Venous Tissue, Open Approach (ICD-10-PCS; 2018-10-15)
PROC: 06BQ4ZZ Excision of Left Saphenous Vein, Percutaneous Endoscopic Approach (ICD-10-PCS; 2018-10-15)
PROC: 5A1221Z Performance of Cardiac Output, Continuous (ICD-10-PCS; 2018-10-15)
PROC: B24BZZ4 Ultrasonography of Heart with Aorta, Transesophageal (ICD-10-PCS; 2018-10-15)
PROC: 02HV33Z Insertion of Infusion Device into Superior Vena Cava, Percutaneous Approach (ICD-10-PCS; 2018-10-15)
PROC: B548ZZA Ultrasonography of Superior Vena Cava, Guidance (ICD-10-PCS; 2018-10-15)
PROC: 30233N1 Transfusion of Nonautologous Red Blood Cells into Peripheral Vein, Percutaneous Approach (ICD-10-PCS; 2018-10-15)
PROC: 02UG0JZ Supplement Mitral Valve with Synthetic Substitute, Open Approach (ICD-10-PCS; principal; 2018-10-15 07:00)
PROC: 04CN0ZZ Extirpation of Matter from Left Popliteal Artery, Open Approach (ICD-10-PCS; 2018-10-16)
PROC: 04CL0ZZ Extirpation of Matter from Left Femoral Artery, Open Approach (ICD-10-PCS; 2018-10-16)
PROC: 0KNT0ZZ Release Left Lower Leg Muscle, Open Approach (ICD-10-PCS; 2018-10-16)
PROC: 0KNT0ZZ Release Left Lower Leg Muscle, Open Approach (ICD-10-PCS; 2018-10-16)
PROC: 0KNT0ZZ Release Left Lower Leg Muscle, Open Approach (ICD-10-PCS; 2018-10-16)
PROC: 0KNT0ZZ Release Left Lower Leg Muscle, Open Approach (ICD-10-PCS; 2018-10-16)
PROC: 0Y6D0Z3 Detachment at Left Upper Leg, Low, Open Approach (ICD-10-PCS; 2018-10-17)
PROC: 02HV33Z Insertion of Infusion Device into Superior Vena Cava, Percutaneous Approach (ICD-10-PCS; 2018-10-17)
PROC: B548ZZA Ultrasonography of Superior Vena Cava, Guidance (ICD-10-PCS; 2018-10-17)
PROC: 03HY32Z Insertion of Monitoring Device into Upper Artery, Percutaneous Approach (ICD-10-PCS; 2018-10-17)
PROC: 5A1D90Z Performance of Urinary Filtration, Continuous, Greater than 18 hours Per Day (ICD-10-PCS; 2018-10-17)
PROC: 5A1945Z Respiratory Ventilation, 24-96 Consecutive Hours (ICD-10-PCS; 2018-10-17)
PROC: 0BH17EZ Insertion of Endotracheal Airway into Trachea, Via Natural or Artificial Opening (ICD-10-PCS; 2018-10-17)
PROC: 06HM33Z Insertion of Infusion Device into Right Femoral Vein, Percutaneous Approach (ICD-10-PCS; 2018-10-17)
PROC: 30233L1 Transfusion of Nonautologous Fresh Plasma into Peripheral Vein, Percutaneous Approach (ICD-10-PCS; 2018-10-18)
PROC: 30233N1 Transfusion of Nonautologous Red Blood Cells into Peripheral Vein, Percutaneous Approach (ICD-10-PCS; 2018-10-18)
PROC: 30233R1 Transfusion of Nonautologous Platelets into Peripheral Vein, Percutaneous Approach (ICD-10-PCS; 2018-10-18)
PROC: 30233K1 Transfusion of Nonautologous Frozen Plasma into Peripheral Vein, Percutaneous Approach (ICD-10-PCS; 2018-10-18)
DX: I21.A1 Myocardial infarction type 2 (principal); I50.23 Acute on chronic systolic (congestive) heart failure; J96.90 Respiratory failure, unspecified, unspecified whether with hypoxia or hypercapnia; M62.82 Rhabdomyolysis; N17.9 Acute kidney failure, unspecified; E87.2 Acidosis; I16.1 Hypertensive emergency; I13.0 Hypertensive heart and chronic kidney disease with heart failure and stage 1 through stage 4 chronic kidney disease, or unspecified chronic kidney disease; I25.110 Atherosclerotic heart disease of native coronary artery with unstable angina pectoris; I34.0 Nonrheumatic mitral (valve) insufficiency; E78.5 Hyperlipidemia, unspecified; K72.90 Hepatic failure, unspecified without coma; E87.5 Hyperkalemia; F17.210 Nicotine dependence, cigarettes, uncomplicated; N18.9 Chronic kidney disease, unspecified; I25.5 Ischemic cardiomyopathy; I73.9 Peripheral vascular disease, unspecified; J44.9 Chronic obstructive pulmonary disease, unspecified; Z96.643 Presence of artificial hip joint, bilateral; M19.90 Unspecified osteoarthritis, unspecified site; I99.8 Other disorder of circulatory system; D75.82 Heparin induced thrombocytopenia (HIT); Z51.5 Encounter for palliative care; Z88.2 Allergy status to sulfonamides; Z88.6 Allergy status to analgesic agent; Z79.82 Long term (current) use of aspirin; Z79.899 Other long term (current) drug therapy; Z80.9 Family history of malignant neoplasm, unspecified; Z71.6 Tobacco abuse counseling
CPT/HCPCS: 0232T; 93306; 93312; 93325; 93460; 93567; 99285; 36415; 36600; 71045; 71046; 71275; 80047; 80048; 80053; 80061; 80069; 81001; 82330; 82435; 82550; 82803; 82810; 82947; 82948; 83036; 83605; 83735; 83880; 84100; 84132; 84145; 84295; 84443; 84478; 84484; 85014; 85018; 85025; 85027; 85347; 85379; 85384; 85610; 85730; 86022; 86885; 86900; 86901; 86920; 87040; 87070; 88300; 88304; 88307; 90732; 90935; 93005; 93880; 93922; 93926; 93970; 94002; 94003; 94010; 94640; 94760; 97162; 97164; 97530; 99152; 99153; A4620; A6223; A6255; A6257; A6258; A6402; A6446; A6449; A6454; A7000; A7048; C1751; C1757; C1760; C1769; C9113; C9399; G0257; G0378; J0171; J0282; J0461; J0690; J0692; J0883; J1250; J1265; J1644; J1720; J1815; J1940; J2001; J2060; J2150; J2250; J2270; J2370; J2405; J2704; J2710; J2720; J2930; J3010; J3370; J3475; J3480; J3490; J7030; J7060; J7120; P9016; P9035; P9045; P9047; P9059; Q9967